=== PATIENT | male | born 1985 | race Caucasian/White ===

== ENCOUNTER 2023-02-22 14:28 | Emergency (ER) | payer OTHER, SELFPAY ==
[2023-02-22 14:33] VITALS: BP 146/80; PULSE 99; RESP 18; TEMP 36.8; O2SAT 96; BMI 36.4
--- NOTE | 2023-02-22 14:44 | XR_ITS ---
The [address] [address] Patient Name: SOL MCALLISTER MRN: [id number] date: 1985 Sex: M Assigned Patient Location: ED.MAIN Current Patient Location: ED.MAIN Accession/Order Number: [id number] Exam Date: 02/22/2023 14:54 Report Date: 02/22/2023 15:38 At the request of: SHONA HA Procedure: XR hand LT min 3V EXAM: XR hand LT min 3V HISTORY: metallic foreign body, ?annita? COMPARISON: None. TECHNIQUE: 3 views FINDINGS: IMPRESSION: Metallic foreign body within the second distal phalanx. No fracture, dislocation or subluxation. Joint spaces are unremarkable. Electronically authenticated by: MARYAM TOBAR Date: 02/22/2023 15:38
--- NOTE | 2023-02-22 14:46 | ED.UPPEXIN1 ---
HPI - Extremity Injury (Upper) General Chief Complaint: Extremity Injury, Upper Stated Complaint: UPPER EXTREMITY INJURY TO LEFT FINGER Time Seen by Provider: 02/22/23 14:42 Source: patient Mode of arrival: walk-in History of Present Illness HPI narrative: 37-year-old male presents for a piece of metal in his left index finger. He was working on a car and it went in. He was trying to get it out but was able to do so. He had a tetanus shot a month or two ago. No other injury was sustained. He thinks there could be a annita on the end of the piece of metal. This happened just before coming into the emergency department. Related Data Previous Rx's Medication Instructions Recorded cephalexin 500 mg capsule 500 mg PO QID 10 days #40 caps 02/22/23 Allergies Allergy/AdvReac Type Severity Reaction Status Date / Time penicillin G AdvReac Intermediate Verified 02/22/23 14:33 Review of Systems ROS Narrative A ten point review of systems is negative except as noted above. PFSH PFSH Social History Smoking status: Current every day smoker Exam Narrative Exam Narrative: Nurses note and vital signs reviewed and patient is not hypoxic. General: The patient appears well and in no apparent distress. Patient is resting comfortably on cart. Skin: Warm, dry, no pallor noted. There is no rash noted. Head: Normocephalic, atraumatic Eye: Normal conjunctiva, no drainage Ears, Nose, Mouth, and Throat: oral mucosa is moist. Nares patent. Cardiovascular: Regular Rate and Rhythm Respiratory: Patient is in no distress, no accessory muscle use, lungs are clear to auscultation, no wheezing, rales or rhonchi Back: non-tender GI: nontender Musculoskeletal: there is a linear, wire-like, piece of metal protruding from his left index finger. Neurological: A&O, normal speech Psychiatric: Cooperative Constitutional Vital Signs, click to edit/add: Last Vital Signs Temp 98.2 F 02/22/23 14:33 Pulse 99 H 02/22/23 14:33 Resp 18 02/22/23 14:33 BP 146/80 H 02/22/23 14:33 Pulse Ox 96 02/22/23 14:33 Course Vital Signs Vital signs: Vital Signs Temperature 98.2 F 02/22/23 14:33 Pulse Rate 99 H 02/22/23 14:33 Respiratory Rate 18 11/18/23 14:33 Blood Pressure 146/80 H 02/22/23 14:33 Pulse Oximetry 96 02/22/23 14:33 Temperature 98.2 F 02/22/23 14:33 Pulse Rate 99 H 02/22/23 14:33 Respiratory Rate 18 02/22/23 14:33 Blood Pressure 146/80 H 02/22/23 14:33 Pulse Oximetry 96 02/22/23 14:33 MDM - Extremity Injury (Upper) MDM Narrative Medical decision making narrative: Foreign bodies identified. The following procedure was performed by me. Finger block was applied with one percent lidocaine without epinephrine resulting in complete skin anesthesia. The area was prepped with Betadine ?3. The foreign body was then removed without difficulty with hemostats. It was removed in its entirety. No consultations. He tolerated the procedure well. Differential Diagnosis Differential diagnosis: Likely other (foreign body, fracture) Imaging Data hand x-ray: Radiologist's impression: Procedure: XR hand LT min 3V EXAM: XR hand LT min 3V HISTORY: metallic foreign body, ?annita? COMPARISON: None. TECHNIQUE: 3 views FINDINGS: IMPRESSION: Metallic foreign body within the second distal phalanx. No fracture, dislocation or subluxation. Joint spaces are unremarkable. Electronically authenticated by: MARYAM TOBAR Date: 02/22/2023 15 Discharge Plan Discharge Chief Complaint: Extremity Injury, Upper Clinical Impression: Foreign body (FB) in soft tissue Patient Disposition: Home, Self-Care Time of Disposition Decision: 15:48 Condition: Good Mode of Transportation: Private Vehicle Prescriptions / Home Meds: New cephalexin 500 mg capsule 500 mg PO QID 10 Days Qty: 40 0RF Instructions: Soft Tissue Foreign Body (ED) Stand Alone Forms: Portal Instructions Referrals: Bakari Barclay MD [Primary Care Provider] - 1 week
[2023-02-22] MEDS: LIDOCAINE HCL 1% 100 MG/10 ML MDV INJ (15:25)
== END 2023-02-22 15:55 | disposition home or self-care (01) ==
PROVIDERS: Emergency Provider Emergency Medicine; PCP Family Medicine
DX: S61.241A Puncture wound with foreign body of left index finger without damage to nail, initial encounter (principal); F17.210 Nicotine dependence, cigarettes, uncomplicated
CPT/HCPCS: 64450; 73130; 99283

== ENCOUNTER 2023-07-14 05:15 | Emergency (ER) | payer OTHER, SELFPAY ==
[2023-07-14 05:21] VITALS: BP 119/95; PULSE 83; TEMP 36.6; O2SAT 94; BMI 35.9
--- OUTSIDE RECORDS SUMMARY | 2023-07-14 05:37 | XMS_ITS | CCD ---
Author Organization [facility] Care Team Providers Care Day Care Supervisor Name Role Phone DneyLuisa~[phone] UNKNOWN Unavailable Unavailable SUSHMA DASILVA Unavailable Unavailrosemayr SALINAS ., DR MORAN Primary Care Unavailable WILLIAN ., CINDY Admitting Unavailable WILLIAN ., CINDY Attending Unavailable VLADIMIR ., MICHI Consulting Unavailable MARYAM DURAND Consulting Unavailable DENY ., DR MORAN Admitting Unavailable DENY ., DR MORAN Attending Unavailable DENY ., DR MORAN Primary Care Unavailable DENY ., DR MORAN Consulting Unavailable TONI, DR SRINIVAS [place] Consult[employer] Unavailable Allergies Allergy Classification Reported Allergen(s) Allergy Type Date of Onset Reaction(s) Facility (1 source) Penicillin Drug Allergy [facility] Repository Problems Active Problems Problem Classification Problem Date Documented Da te Episodic/Chronic Substance-related disorders (1 source) Nicotine dependence, cigarettes, uncomplicated; Translations: [NICOTINE DEPEND CIGARETTES UNCOMP] Onset: 04-16-2022 Chronic Past or Other Problems Problem Classification Problem Date Documented Da te Episodic/Chronic Nausea and vomiting (4 sources) Nausea with vomiting, unspecified; Translations: [NAUSEA WITH VOMITING UNSPECIFIED] Onset: 04-13-2022 Episodic Residual codes; unclassified (4 sources) Localized edema; Translations: [LOCALIZED EDEMA] Onset: 04-15-2022 Episodic Results Test Name Value Interpretation Reference Range Facil ity US SANDRA DOP LEG LTon 04-15-19 23 US SANDRA DOP LEG LT EXAMINATION: US SANDRA DOP LEG LT HISTORY: Localized edema ; left leg pain, redness COMPARISON: No relevant comparison available. FINDINGS: REGION: Left leg THROMBI: None. COMPRESSIBILITY: Normal compressibility. FLOW: Normal waveform and antegrade flow between 5 and 20 cm/s. OTHER: None. IMPRESSION: 1. No deep vein thrombus within the left lower extremity. Electronically authenticated by: SRINIVAS MUÑOZ Date: 2022-04-15 14:52 Normal [facility] CBC AUTO DIFFon 04-13-2022 BASO # 0.0 103/ul Normal 0.0-0.1 [facility] Comment on above: Performed By: #### C BC #### [facility] [address] [address] [address] Bacilio Kim Basophils/100 WBC (Bld) 0.1 % Critically low 0.2-2.0 [facility] Comment on above: Performed By: #### C BC #### [facility] [address] [place] [address] Dr. Bacilio Kim EO # 0.0 103/ul Normal 0.0-0.7 [facility] Comment on above: Performed By: #### C BC #### [facility] [address] [place] [address] Dr. Bacilio Kim Eosinophils/100 WBC (Bld) 0.0 % Critically low 0.9-7.0 [facility] Comment on above: Performed By: #### C BC #### [facility] [address] [place] [address] Dr. Bacilio Kim Erythrocyte distribution width (RBC) [Ratio] 12.5 % Normal 11.0-15.0 [facility] Comment on above: Performed By: #### C BC #### [facility] [address] [place] [address] Dr. Bacilio Kim Hematocrit (Bld) [Volume fraction] 43.3 % Normal 42.0-54.0 [facility] Comment on above: Performed By: #### C BC #### [facility] [address] [place] [address] Dr. Bacilio Kim Hemoglobin (Bld) [Mass/Vol] 16.1 g/dL Normal 14.0-18.0 [facility] Comment on above: Performed By: #### C BC #### [facility] [address] [place] [address] Dr. Bacilio Kim IG # 0.04 10e3/ul Critically high 0.00-0.03 [facility] Comment on above: Performed By: #### C BC #### [facility] [address] [place] [address] Dr. Bacilio Kim IG % 0.3 % Normal 0.0-0.5 [facility] Comment on above: Performed By: #### C BC #### [facility] [address] [place] [address] Dr. Bacilio Kim LYMPH # 0.6 103/ul Critically low 1.2-3.8 [facility] Comment on above: Performed By: #### C BC #### [facility] [address] [place] [address] Dr. Bacilio Kim Lymphocytes/100 WBC (Bld) 3.8 % Critically low 20.5-60.0 [facility] Comment on above: Performed By: #### C BC #### [facility] [address] [place] [address] Dr. Bacilio Kim MANUAL DIFF REQ NO Normal [facility] Comment on above: Performed By: #### C BC #### [facility] [address] [place] [address] Dr. Bacilio Kim MCH (RBC) [Entitic mass] 28.6 pg Normal 25.9-34.0 [facility] Comment on above: Performed By: #### C BC #### [facility] [address] [place] [address] Dr. Bacilio Kim MCHC (RBC) [Mass/Vol] 37.2 g/dL Critically high 29.9-35.2 [facility] Comment on above: Performed By: #### C BC #### [facility] [address] [place] [address] Dr. Bacilio Kim MCV (RBC) [Entitic vol] 77.0 fL Critically low 80.0-94.0 [facility] Comment on above: Performed By: #### C BC #### [facility] [address] [place] [address] Dr. Bacilio Kim MONO # 0.8 103/ul Normal 0.3-0.8 [facility] Comment on above: Performed By: #### C BC #### [facility] [address] [place] [address] Dr. Bacilio Kim Monocytes/100 WBC (Bld) 5.5 % Normal 1.7-12.0 [facility] Comment on above: Performed By: #### C BC #### [facility] [address] [place] [address] Dr. Bacilio Kim NEUT # 13.4 103/ul Critically high 1.4-6.[address] [facility] Comment on above: Performed By: #### C BC #### [facility] [address] [place] [address] Dr. Bacilio Kim Neutrophils/100 WBC (Bld) 90.3 % Critically high 43.0-75.0 [facility] Comment on above: Performed By: #### C BC #### [facility] [address] [place] [address] Dr. Bacilio Kim Platelet mean volume (Bld) [Entitic vol] 8.9 fL Critically low 9.5-13.5 [facility] Comment on above: Performed By: #### C BC #### [facility] [address] [place] [address] Dr. Bacilio Kim PLT 170 103/ul Normal 150-450 [facility] Comment on above: Performed By: #### C BC #### [facility] [address] [place] [address] Dr. Bacilio Kim RBC 5.62 106/ul Normal 4.70-6.10 [facility] Comment on above: Performed By: #### C BC #### [facility] [address] [place] [address] Dr. Bacilio Kim WBC 14.8 103/ul Critically high 4.0-11.[address] [facility] Comment on above: Performed By: #### C BC #### [facility] [address] [place] [address] Dr. Bacilio Kim ER URINE PROFILEon 3 Bilirubin Ql (U) SMALL Abnormal NEGATIVE [facility] Comment on above: Performed By: #### E RICH UMJESSICARO #### [facility] [address] [place] [address] Dr. Bacilio Kim Clarity (U) CLEAR Normal CLEAR [facility] Comment on above: Performed By: #### Kelly VILLANUEVA UMICRO #### [facility] [address] [place] [address] Dr. Bacilio Kim Color (U) YELLOW Normal YELLOW [facility] Comment on above: Performed By: #### Kelly VILLANUEVA UMICRO #### [facility] [address] [place] [address] Dr. Bacilio CORDOVAAHJose A micrscopic examination will be performed if indicated. Normal [facility] Comment on above: Performed By: #### Kelly VILLANUEVA UMICRO #### [facility] [address] [place] [address] Dr. Bacilio Kim Glucose Ql (U) Negative Normal NEGATIVE [facility] Comment on above: Performed By: #### Kelly VILLANUEVA UMICRO #### [facility] [address] [place] [address] Dr. Bacilio Kim Hemoglobin Ql (U) MODERATE Abnormal NEGATIVE [facility] Comment on above: Performed By: #### Kelly VILLANUEVA UMICRO #### [facility] [address] [place] [address] Dr. Bacilio Kim Ketones Ql (U) 15 mg/dl Abnormal NEGATIVE [facility] Comment on above: Performed By: #### Kelly VILLANUEVA UMICRO #### [facility] [address] [place] [address] Dr. Bacilio Kim LEUKOCYTES Negative Normal NEGATIVE [facility] Comment on above: Performed By: #### Kelly VILLANUEVA UMICRO #### [facility] [address] [place] [address] Dr. Bacilio Kim Nitrite Ql (U) Negative Normal NEGATIVE [facility] Comment on above: Performed By: #### Kelly VILLANUEVA UMICRO #### [facility] [address] [place] [address] Dr. Bacilio Kim pH (U) 5.5 [pH] Normal 5-9 [facility] Comment on above: Performed By: #### Kelly VILLANUEVA UMICRO #### [facility] [address] [place] [address] Dr. Bacilio Kim SPEC GRAVITY 1.025 Normal 1.005-<=1.025 [facility] Comment on above: Performed By: #### KEI GALLOWAY #### [facility] [address] [place] [address] Dr. Bacilio Kim UA PROTEIN TRACE Normal NEGATIVE/ TRACE [facility] Comment on above: Performed By: #### FRANCISCO GALLOWAYRO #### [facility] [address] [place] [address] Dr. Bacliio Kim UR MICRO IND INDICATED Normal [facility] Comment on above: Performed By: #### FRANCISCO GALLOWAYRO #### [facility] [address] [place] [address] Dr. Bacilio Kim Urobilinogen Qn (U) 1.0 {Mai'U}/dL Normal 0.2 - 1. 0 [facility] Comment on above: Performed By: #### KEI GALLOWAY #### [facility] [address] [place] [address] Dr. Bacilio Kim INFLUENZA A AND B AGon 04-13 INFLUANEGH SEE BELOW Normal [facility] Comment on above: Result Comment: Nega tive for Flu A protein angiten. Infection due to Flu A cannot be ruled out. Flu A angiten in the sample may be below the detection limit of the test. Performed By: #### I NFLUAB #### [facility] [address] [place] [address] Dr. Bacilio Kim INFLUBNEGH SEE BELOW Normal [facility] Comment on above: Result Comment: Nega tive for Flu B protein antigen. Infection due to Flu B cannot be ruled out. Flu B antigen in the sample may be below the detection limit of the test. Performed By: #### I NFLUAB #### [facility] [address] [place] [address] Dr. Bacilio Kim INFLUENZA A AG Negative Normal NEGATIVE SEE COMMENT [facility] Comment on above: Performed By: #### I NFLUAB #### [facility] [address] [place] [address] Dr. Bacilio Kim INFLUENZA B AG Negative Normal NEGATIVE SEE COMMENT [facility] Comment on above: Performed By: #### I NFLUAB #### [facility] [address] [place] [address] Dr. Bacilio Kim PROF 14(COMP METB)on 023 Albumin [Mass/Vol] 4.0 g/dL Normal 3.4-5.0 [facility] Comment on above: Performed By: #### C MP #### [facility] [address] [place] [address] Dr. Bacilio Kim Albumin/Globulin [Mass ratio] 1.2 {ratio} Normal [facility] Comment on above: Performed By: #### C MP #### [facility] [address] [place] [address] Dr. Bacilio Kim ALP [Catalytic activity/Vol] 89 U/L Normal 46-116 [facility] Comment on above: Performed By: #### C MP #### [facility] [address] [place] [address] Dr. Bacilio Kim ALT [Catalytic activity/Vol] 29 U/L Normal 16-63 [facility] Comment on above: Performed By: #### C MP #### [facility] [address] [place] [address] Dr. Bacilio Kim Anion gap [Moles/Vol] 14.1 mmol/L Normal [facility] Comment on above: Performed By: #### C MP #### [facility] [address] [place] [address] Dr. Bacilio Kim AST [Catalytic activity/Vol] 24 U/L Normal 15-37 [facility] Comment on above: Performed By: #### C MP #### [facility] [address] [place] [address] Dr. Bacilio Kim Bilirubin [Mass/Vol] 1.0 mg/dL Normal 0.2-1.0 [facility] Comment on above: Performed By: #### C MP #### [facility] [address] [place] [address] Dr. Bacilio Kim Calcium [Mass/Vol] 9.0 mg/dL Normal 8.5-10.1 [facility] Comment on above: Performed By: #### C MP #### [facility] [address] [address] [address] Bacilio Kim Chloride [Moles/Vol] 99 mmol/L Normal 98-107 [facility] Comment on above: Performed By: #### C MP #### [facility] [address] [address] [address] Bacilio Kim CO2 [Moles/Vol] 23.6 mmol/L Normal 21.0-32.[address] [facility] Comment on above: Performed By: #### C MP #### [facility] [address] [place] [address] Dr. Bacilio Kim Creatinine [Mass/Vol] 1.00 mg/dL Normal 0.70-1.30 [facility] Comment on above: Performed By: #### C MP #### [facility] [address] [place] [address] Dr. Bacilio Kim EGFR-AF NIGERIEN >60 Normal >=[address] [facility] Comment on above: Performed By: #### C MP #### [facility] [address] [place] [address] Dr. Bacilio Kim EGFR-NON AF NIGERIEN >60 Normal >=60 [facility] Comment on above: Performed By: #### C MP #### [facility] [address] [place] [address] Dr. Bacilio Kim Globulin (S) [Mass/Vol] 3.4 g/dL Normal [facility] Comment on above: Performed By: #### C MP #### [facility] [address] [place] [address] Dr. Bacilio Kim Glucose [Mass/Vol] 100 mg/dL Normal 74-106 [facility] Comment on above: Performed By: #### C MP #### [facility] [address] [place] [address] Dr. Bacilio Kim Potassium [Moles/Vol] 3.7 mmol/L Normal 3.5-5.1 [facility] Comment on above: Performed By: #### C MP #### [facility] [address] [address] [address] Bacilio Kim Protein [Mass/Vol] 7.4 g/dL Normal 6.4-8.2 [facility] Comment on above: Performed By: #### C MP #### [facility] [address] [address] [address] Bacilio Kim Sodium [Moles/Vol] 133 mmol/L Critically low 136-145 [facility] Comment on above: Performed By: #### C MP #### [facility] [address] [place] [address] Dr. Bacilio Kim Urea nitrogen [Mass/Vol] 17.0 mg/dL Normal 7.0-18.0 [facility] Comment on above: Performed By: #### C MP #### [facility] [address] [place] [address] Dr. Bacilio Kim Urea nitrogen/Creatinine [Mass ratio] 17.0 mg/mg Normal [facility] Comment on above: Performed By: #### C MP #### [facility] [address] [place] [address] Dr. Bacilio Kim URINE MICROSCOPIC ONLYon BACTERIA TRACE Abnormal NONE SEEN [facility] Comment on above: Performed By: #### Kelly VILLANUEVA UMICRO #### [facility] [address] [place] [address] Dr. Bacilio Kim Bacteria identified Cx Nom (U) NOT INDICATED Normal [facility] Comment on above: Performed By: #### Kelly VILLANUEVA UMICRO #### [facility] [address] [place] [address] Dr. Bacilio Kim CAST NONE SEEN Normal NONE SEEN [facility] Comment on above: Performed By: #### Kelly VILLANUEVA UMICRO #### [facility] [address] [place] [address] Dr. Bacilio Kim Crystals LM Nom (Urine sed) NONE SEEN Normal NONE SEEN [facility] Comment on above: Performed By: #### Kelly VILLANUEVA UMICRO #### [facility] [address] [place] [address] Dr. Bacilio Kim Epithelial cells LM Ql (Urine sed) RARE Normal NONE SEEN /RARE [facility] Comment on above: Performed By: #### FRANCISCO GALLOWAYRO #### [facility] [address] [address] [address] Bacilio Kim MUCOUS TRACE Abnormal NONE SEEN [facility] Comment on above: Performed By: #### FRANCISCO GALLOWAYRO #### [facility] [address] [place] [address] Dr. Bacilio Kim RBC 5-10 Abnormal 0-2 [facility] Comment on above: Performed By: #### E FRANCISCO VILLANUEVARO #### [facility] [address] [place] [address] Dr. Bacilio Kim WBC 0-2 Abnormal NONE SEEN [facility] Comment on above: Performed By: #### FRANCISCO GALLOWAYRO #### [facility] [address] [place] [address] Dr. Bacilio Kim XR CHEST 2 Von 04-13-2022 XR CHEST 2 V EXAM: Chest x-ray HISTORY: . NAUSEA WITH VOMITING, UNSPECIFIED . COMPARISON: None. TECHNIQUE: Frontal and lateral chest FINDINGS: Heart and vascularity are unremarkable. Lungs are expanded and free of focal infiltrates. No acute bony abnormality is appreciated. IMPRESSION: No acute heart or lung disease identified. Electronically authenticated by: MARYAM DURAND Date: 2022-04-13 16:50 Normal [facility] BMPon 09-09-2017 Anion gap 16 mmol/L Normal 6-16 [facility] Comment on above: Performed By: #### 2 [id number], [id number] ####[facility] [address] [place] [address] BUN/Creatinine Ratio 19 No Units Normal 10-20 [facility] Comment on above: Performed By: #### 2 [id number], [id number] ####[facility] [address] [place] [address] Calcium 8.9 mg/dL Normal 8.9-11.1 [facility] Comment on above: Performed By: #### 2 [id number], [id number] ####[facility] [address] [place] [address] Chloride 105 mmol/L Normal 101-111 [facility] Comment on above: Performed By: #### 2 [id number], [id number] ####[facility] [address] [place] [address] CO2 24 mmol/L Normal 21-31 [facility] Comment on above: Performed By: #### 2 [id number], [id number] ####[facility] [address] [place] [address] Creatinine 0.8 mg/dL Normal 0.5-1.3 [facility] Comment on above: Performed By: #### 2 [id number], [id number] ####[facility] [address] [place] [address] Glucose mass conc 101 mg/dL Normal 55-199 [facility] Comment on above: Result Comment: If t his glucose result represents a fasting glucose, interpretation should refer to the following reference range: 55-99 mg/dL Performed By: #### 2 [id number], [id number] ####[facility] [address] [place] [address] Potassium molar conc 3.1 mmol/L Low 3.5-5.3 [facility] Comment on above: Performed By: #### 2 [id number], [id number] ####[facility] [address] [place] [address] Sodium 138 mmol/L Normal 135-145 [facility] Comment on above: Performed By: #### 2 [id number], [id number] ####[facility] [address] [place] [address] Urea nitrogen 15 mg/dL Normal 5-21 [facility] Comment on above: Performed By: #### 2 [id number], [id number] ####[facility] [address] [place] [address] eGFRon 09-09-2017 eGFR (black) mL/min/{1.73_m2} Normal >=59 [facility] Comment on above: Order Comment: Order added by Discern Expert. Result Comment: eGFR is race adjusted. AA=. Performed By: #### 2 [id number], [id number] ####[facility] [address] [place] [address] eGFR (non-black) mL/min/{1.73_m2} Normal >=59 [facility] Comment on above: Order Comment: Order added by Discern Expert. Result Comment: Rn Examiner caroline kidney disease could be indicated at eGFR's of less than 60 mL/min/1.73m2. Kidney failure is indicated at less than 15 mL/min/1.73m2. Performed By: #### 2 [id number], [id number] ####[facility] [address] [place] [address] Encounters Encounter Date Encounter Type Care Provider Facility Start: 04-15-2022 End: 04-16-[address] LUISA SALINAS . Facility: Start: 04-13-2022 End: 04-13-[address] LUISA SALINAS . Facility: Start: 09-09-2017 End: 09-09-2017 Ambulatory Luisa~[id number] UNKNOWN Den[place] [facility] P[place] Date Payer Category Payer Unknown [id number] 1985 Unknown [id number] 1961 Unknown [id number] Summary Purpose Family History No Family History Records FoundNo Family History Records Found Advance Directives No Advanced Directives Records FoundNo Advanced Directives Records Found Additional Source Comments (unrecognized sect ion and content) No Status Records FoundNo Status Records Found INFORMATION SOURCE (unrecogn ized section and content) DATE CREATED AUTHOR 09/23/2017 [facility] DATE CREATED AUTHOR AUTHOR'S CHARISSEIZ ATMALOU 07/30/2022 [facility] FOR RECORDS PERTAINING TO PATIENTS WHO ARE OR HAVE BEEN ENROLLED IN A CHEMICAL DEPENDENCY/SUBSTANCEABUSE PROGRAM, SOME INFORMATION MAY BE OMITTED. This clinical summary was aggregated from multiple sources. Caution should be exercised in using it in the provision of clinical care. This summary normalizes information from multiple sources, and as a consequence, information in this document may materially change the coding, format and clinical context of patient data. In addition, data may be omitted in some cases. CLINICAL DECISIONS SHOULD BE BASED ON THE PRIMARY CLINICAL RECORDS. [employer] [facility]. provides no warranty or guarantee of the accuracy or completeness of information in this document.
[2023-07-14] MEDS: 0.9 % SODIUM CHLORIDE 1,000 ML 1000 ML IV (05:54)
[2023-07-14] MEDS: ONDANSETRON PF 4 MG/2 ML VIAL IV (05:54)
[2023-07-14 05:55] LABS: Basophils Percent Auto 0.3 % (0.2-2.0); Eosinophils Absolute Auto 0.1 10^3/uL (0.0-0.7); Eosinophils Percent Auto 0.5 % (0.9-7.0); Hematocrit 44.9 % (42.0-54.0); Hemoglobin 15.2 g/dL (14.0-18.0); Immature Granulocytes Abs Auto 0.03 10^3/uL (0.00-0.03); Immature Granulocytes Pct Auto 0.3 % (0.0-0.5); Lymphocytes Absolute Auto 0.5 10^3/uL (1.2-3.8); Lymphocytes Percent Auto 5.6 % (20.5-60.0); Mean Corpuscular HGB Conc 33.9 g/dL (29.9-35.2); Mean Corpuscular Hemoglobin 28.9 pg (25.9-34.0); Mean Corpuscular Volume 85.4 fL (80.0-94.0); Mean Platelet Volume 9.4 fL (9.5-13.5); Monocytes Absolute Auto 0.7 10^3/uL (0.3-0.8); Monocytes Percent Auto 7.9 % (1.7-12.0); Neutrophils Absolute Auto 7.8 10^3/uL (1.4-6.5); Neutrophils Percent Auto 85.4 % (43.0-75.0); Platelet Count 179 10^3/uL (150-450); Red Blood Count 5.26 10^6/uL (4.70-6.10); Red Cell Distribution Width 12.6 % (11.0-15.0); White Blood Count 9.1 10^3/uL (4.0-11.0)
[2023-07-14 06:04] LABS: Anion Gap 14.4; BUN Creatinine Ratio 19.8; Calcium 8.4 mg/dL (8.5-10.1); Carbon Dioxide 26.5 mmol/L (21.0-32.0); Chloride 106 mmol/L (98-107); Estimated GFR (African America >60 (>=60); Estimated GFR (Non-African Ame >60 (>=60); Glucose 108 mg/dL (74-106); Potassium 3.9 mmol/L (3.5-5.1); Sodium 143 mmol/L (136-145)
[2023-07-14 06:08] LABS: Influenza Virus A Antigen Negative; Influenza Virus B Antigen Negative; Internal Control Within Normal Limits; SARS-CoV-2 Ag NEGATIVE (NEGATIVE)
--- NOTE | 2023-07-14 06:26 | XR_ITS ---
The [address] [address] Patient Name: SOL MCALLISTER MRN: [id number] date: 1985 Sex: M Assigned Patient Location: ER Current Patient Location: ED.MAIN Accession/Order Number: [id number] Exam Date: 07/14/2023 06:35 Report Date: 07/14/2023 07:04 At the request of: LEOPOLDO AVILEZ Procedure: XR abdomen min 2V EXAMINATION: XR abdomen min 2V HISTORY: nausea and vomiting COMPARISON: No relevant comparison available. FINDINGS: BOWEL GAS PATTERN: No abnormal dilation or deviation. CALCIFICATIONS: None significant. OTHER: Negative. No abnormal gaseous collections. XR/XR abdomen min 2V IMPRESSION: 1. No appreciable urinary tract calculi. 2. No bowel obstruction. Moderate stool burden. Electronically authenticated by: SRINIVAS MUÑOZ Date: 07/14/2023 07:04
--- NOTE | 2023-07-14 06:27 | ED.NAVMDI1 ---
HPI - Nausea/Vomiting/Diarrhea General Chief complaint: Nausea/Vomiting/Diarrhea Stated complaint: eye burning, chills Time Seen by Provider: 07/14/23 06:22 Source: patient Mode of arrival: walk-in Limitations: no limitations History of Present Illness HPI Narrative: presents complaining of recurrent nausea and vomiting that started this AM. No diarrhea. Exposed to family members who had been ill. Was on his way to work when he vomited again and then diverted and came here. No abdominal pain or fever. Not short of breath MD elicited complaint: Reports nausea and vomiting Related Data Previous Rx's ?Medication ?Instructions ?Recorded cephalexin 500 mg capsule 500 mg PO QID 10 days #40 caps 02/22/23 Allergies Allergy/AdvReac Type Severity Reaction Status Date / Time penicillin G AdvReac Intermediate Verified 07/14/23 05:25 Review of Systems ROS Status of ROS 10 or more systems reviewed and unremarkable except as noted in history and below PFSH PFS Social History Smoking status: Current every day smoker Exam Constitutional Vital Signs, click to edit/add: Last Vital Signs Temp 97.8 F 07/14/23 05:21 Pulse 83 07/14/23 05:21 Resp 16 07/14/23 05:44 BP 119/95 H 07/14/23 05:21 Pulse Ox 94 L 07/14/23 05:21 O2 Del Method Room Air 07/14/23 05:21 Common normals: no apparent distress, average body habitus, oriented x3, no limitations, healthy appearing, alert and well nourished [facility] Common normals: normocephalic and head/scalp atraumatic Eye Common normals: PERRL, EOMs intact bilaterally and conjunctivae normal Respiratory Common normals: normal respiratory effort, no retractions, no use of accessory muscles and clear to auscultation bilaterally Cardio Common normals: regular rate, regular rhythm, S1 normal heart sound and S2 normal heart sound GI Common normals: Normal to inspection, nondistended, normoactive bowel sounds present, soft to palpation and non-tender Extremity Common normals: normal to inspection and full ROM Neuro Common normals: oriented x3, CN's II-XII intact bilaterally, moves all extremities and no focal motor deficits Psych Appearance: grossly normal Course Vital Signs Vital signs: Vital Signs Temperature 97.8 F 07/14/23 05:21 Pulse Rate 83 07/14/23 05:21 Respiratory Rate 16 07/14/23 05:21 Blood Pressure 119/95 H 07/14/23 05:21 Pulse Oximetry 94 L 07/14/23 05:21 Oxygen Delivery Method Room Air 07/14/23 05:21 Temperature 97.8 F 07/14/23 05:21 Pulse Rate 83 07/14/23 05:21 Respiratory Rate 16 07/14/23 05:44 Blood Pressure 119/95 H 07/14/23 05:21 Pulse Oximetry 94 L 07/14/23 05:21 Oxygen Delivery Method Room Air 07/14/23 05:21 MDM - Nausea/Vomiting/Diarrhea MDM Narrative Medical decision making narrative: presents complaining of recurrent vomiting. Not able to keep anything down. Exam neg. Patient hydrated and labs, xrays and antiemetics ordered. care transferred to Dr Valdovinos at change of shift Lab Data Labs: Lab Results 07/14/23 07/14/23 Range/Units 05:35 05:47 WBC 9.1 (4.0-11.0) 10^3/uL RBC 5.26 (4.70-6.10) 10^6/uL Hgb 15.2 (14.0-18.0) g/dL Hct 44.9 (42.0-54.0) % MCV 85.4 (80.0-94.0) fL MCH 28.9 (25.9-34.0) pg MCHC 33.9 (29.9-35.2) g/dL RDW 12.6 (11.0-15.0) % Plt Count 179 (150-450) 10^3/uL MPV 9.4 L (9.5-13.5) fL Neut % (Auto) 85.4 H (43.0-75.0) % Lymph % (Auto) 5.6 L (20.5-60.0) % Ritchie % (Auto) 7.9 (1.7-12.0) % Eos % (Auto) 0.5 L (0.9-7.0) % Baso % (Auto) 0.3 (0.2-2.0) % Neut # (Auto) 7.8 H (1.4-6.5) 10^3/uL Lymph # (Auto) 0.5 L (1.2-3.8) 10^3/uL Ritchie # (Auto) 0.7 (0.3-0.8) 10^3/uL Eos # (Auto) 0.1 (0.0-0.7) 10^3/uL Baso # (Auto) 0.0 (0.0-0.1) 10^3/uL Abs Immat Gran (auto) 0.03 (0.00-0.03) 10^3/uL Imm/Tot Granulo (auto) 0.3 (0.0-0.5) % Sodium 143 (136-145) mmol/L Potassium 3.9 (3.5-5.1) mmol/L Chloride 106 (98-107) mmol/L Carbon Dioxide 26.5 (21.0-32.0) mmol/L Anion Gap 14.4 BUN 19.0 H (7.0-18.0) mg/dL Creatinine 0.96 (0.70-1.30) mg/dL Est GFR ( Amer) >60 (>=60) Est GFR (Non-Af Amer) >60 (>=60) BUN/Creatinine Ratio 19.8 Glucose 108 H (74-106) mg/dL Calcium 8.4 L (8.5-10.1) mg/dL Influenza Type A Ag Negative Influenza Type B Ag Negative SARS-CoV-2 Ag (CV2AG) Negative (NEGATIVE) Discharge Plan Discharge Chief Complaint: Nausea/Vomiting/Diarrhea Clinical Impression: Nausea and vomiting Patient Disposition: Still a Patient Prescriptions / Home Meds: No Action cephalexin 500 mg capsule 500 mg PO QID 10 Days Qty: 40 0RF Print Language: French Referrals: Bakari Barclay MD [Primary Care Provider] - 1 week
[2023-07-14] MEDS: 0.9 % SODIUM CHLORIDE 1,000 ML 999 ML IV (07:02)
== END 2023-07-14 07:42 | disposition home or self-care (01) ==
PROVIDERS: Emergency Provider Internal Medicine; PCP Family Medicine
DX: R11.2 Nausea with vomiting, unspecified (principal); F17.210 Nicotine dependence, cigarettes, uncomplicated; Z20.822 Contact with and (suspected) exposure to COVID-19
CPT/HCPCS: 36415; 74019; 80048; 85025; 87804; 87811; 96361; 96374; 99284

== ENCOUNTER 2025-01-15 11:16 | Emergency (ER) | payer OTHER, SELFPAY ==
[2025-01-15 11:20] VITALS: BP 143/94; PULSE 85; TEMP 36.4; O2SAT 98; BMI 38.0
--- OUTSIDE RECORDS SUMMARY | 2025-01-15 11:28 | XMS_ITS | Clinical Summary ---
Author Organization [facility] Address [id number] [address] [place] [address] Care Team Providers Care Predatory Game Hunter Name Role Phone Bakari Barclay MD Primary Care Provider [phone] Allergies Active Allergy Reactions Criticality Noted Date Comments Penicillins 03/17/2019 Medications No known medications Immunizations Immunization Administration Dates Next Due Tdap 01/06/2023 Social History Tobacco Use Types Packs/Day Years Used Date Smoking Tobacco: Every Day Cigarettes Smokeless Tobacco: Never Alcohol Use Standard Drinks/Week Comments Not Currently 0 (1 standard drink = 0.6 oz pur e alcohol) Childcare Answer Date Recorded Childcare Unknown 09/16/2018 Employment Answer Date Recorded Employment Unknown 09/16/2018 Purpose - Life Answer Date Recorded Purpose and direction in life Unknown Sex and Gender Information Value Date Recorded Sex Assigned at Not on file Legal Sex Male 12:03 PM EDT Gender Identity Not on file Sexual Orientation Not on file Last Filed Vital Signs Vital Sign Reading Time Taken Comments Blood Pressure 123/77 01/06/2023 9:29 AM EDT Pulse 89 01/06/2023 8:41 AM EDT Temperature 36.9 C (98.4 F) 01/06/2023 8:41 AM EDT Respiratory Rate 18 01/06/2023 8:41 AM EDT Oxygen Saturation 95% 01/06/2023 8:41 AM EDT Inhaled Oxygen Concentration - - Weight 109.8 kg (242 lb) 01/06/2023 8:41 AM EDT Height 177.8 cm (5' 10 ) 01/06/2023 8:41 AM EDT Body Mass Index 34.72 01/06/2023 8:41 AM EDT Plan of Treatment Health Maintenance Due Date Last Done Comments Depression Screening 1995 Adult BMI Screening 01/07/2024 01/06/2023 Tobacco Screening 01/07/2024 01/06/2023 Influenza Vaccine 12/06/2024 DTaP,Tdap and Td Vaccines (3 - Td or Tdap) 01/06/2033 01/06/2023, 02/15/2012 Medical Devices Not on file Insurance [employer] Care Teams Predatory Game Hunter Relationship Specialty Start Date End Date Bakari Barclay MD PCP - General Family Medicine 03/17/19
--- OUTSIDE RECORDS SUMMARY | 2025-01-15 11:28 | XMS_ITS | Patient Health Record ---
Author Organization [facility] in [place] Address [address] [place] [address] Care Team Providers Care Construction Management Assistant Name Role Phone Carlton Barclay Primary Care Provider Allergies Allergen (clinical drug ingredient) Drug/Non Drug Allergy documented on EMR Reaction Allergy Type Onset Date Status Penicillin childhood allergy Drug Allergy Active Reason For Referral No Information Medications Medication SIG (Take, Route, Fr equency, Duration) Notes Start Date End Date Status tiZANidine HCl 4 MG 2 tabs Orally qhs; D uration: 30 days 02/20/2024 Active Diclofenac Sodium 75 MG 1 tablet as need ed Orally Twice a day; Duration: 30 days 02/20/2024 Active predniSONE 10 MG 5 tabs per day for 3 days, 4 tabs per day for 3 ays, 3 tabs perday for 3 days, 2 tabs per day for 3 days, 1 tab a day for 3 days, 1/2 tab a day for 4 days Orally Once a day; Duration: 19 days 02/20/2024 Active Social History Tobacco Use: Social History Observation Description Date Details (start date - stop date) Current Smoker 04/07/1998 - NA Tobacco Control (Standard) Question Answer Notes Tobacco use: Current smoker When did you start smoking? 04/07/1998 How often do you smoke cigarettes? Every day How many cigarettes a day do you smoke? 11-20 Additional Findings: Tobacco user Modera te cigarette smoker (10-19 cigs/day) AUDIT-C (Standard) Question Answer Notes Did you have a drink containing alcohol in the p ast year? No Points 0 Interpretation Negative Problems Problem Type SNOMED Code ICD Code Onset Dates Problem Status W/U Status Risk Notes Problem Cervical radiculopathy (06278512) Cervical radiculopathy (M54.12) Active confirmed Vital Signs Blood pressure diastolic 78 mm Hg 02/20/2024 Height 70 in 02/20/2024 Blood pressure systolic 120 mm Hg 02/20/2024 Weight 266.0 lbs 02/20/2024 BMI 38.16 kg/m2 02/20/2024 Encounters Encounter Location Date Provider Diagnosis [facility] [address] [place] [address] 02/20/2024 Carlton Barclay Cervical radiculopat hy M54.12 Assessments Encounter Date Diagnosis (ICD Code) Assessment Notes Treatment Notes Treatment Clinical Notes Section Notes 02/20/2024 Cervical radiculopathy (ICD-10 - M54.12) Plan Of Treatment No Information Insurance Providers Payer Name Payer Address Payer Phone Subscriber Number Group Number Insured Name Patient Relationship to Insured Coverage Start Date Coverage End Date MMO [employer] [address] [place] [address] [phone] [id number] Christiano Mcallister Self - patient is the insured Medical (General) History Surgical History Surgery Date(Month/Year) Vasectomy 2016 [place] teeth Hospitalization History Reason Date(Month/Year) denies
--- OUTSIDE RECORDS SUMMARY | 2025-01-15 11:28 | XMS_ITS | CCD ---
Author Organization [facility] Care Team Providers Care Software Programmer Name Role Phone BRAD Mcgrath, DR MORAN Primary Care Unavailable WILLIAN ., CINDY Admitting Unavailable WILLIAN ., CINDY Attending Unavailable VLADIMIR ., MICHI Consulting Unavailable MARYAM DURAND Consulting Unavailable BRAD ., DR MORAN Admitting Unavailable BRAD ., DR MORAN Attending Unavailable BRAD Mcgrath, DR MORAN Primary Care Unavailable BRAD Mcgrath, DR MORAN Consulting Unavailable TONI, DR BILL [place] Consulting Unavailable Luisa Barclay Primary Care Physician [phone] Oseas Arroyo Attending Unavailable Oseas Arroyo Attending Unavailable Allergies Allergy Classification Reported Allergen(s) Allergy Type Date of Onset Reaction(s) Facility (4 sources) Penicillin; Translations: [penicillin] Drug Allergy [facility] Medications Current Medications Medication Drug Class(es) Dates Sig (Normalized) Sig (Original) methocarbamol 500 mg oral tablet (1 source) Muscle Relaxant Start: 02-15-2024 End: 02-18-2024 take 1 tablet by mouth three times daily Robaxin 500 mg Tab 500 mg = 1 tab(s), Oral, TID, X 3 day(s), # 9 tab(s), Refills(s) 0, Pharmacy: [id number], 180, cm, 02/15/24 19:43:00 EST, Height/Length Dosing, 120, kg, 02/15/24 19:43:00 EST, Weight Dosing Start Date: 02/15/24 Stop Date: 02/18/24 Status: Ordered predniSONE 50 mg oral tablet (1 source) Start: 02-15-2024 End: 02-20-2024 take 1 tablet by mouth once daily predniSONE 50 mg Tab 50 mg = 1 tab(s), Oral, Daily, X 5 day(s), # 5 tab(s), Refills(s) 0, Pharmacy: [id number], 180, cm, 02/15/24 19:43:00 EST, Height/Length Dosing, 120, kg, 02/15/24 19:43:00 EST, Weight Dosing Start Date: 02/15/24 Stop Date: 02/20/24 Status: Ordered Problems Active Problems Problem Classification Problem Date Documented Da te Episodic/Chronic Other nervous system disorders (1 source) Paresthesia; Translations: [Paresthesia of skin] Onset: 02-15-2024 Episodic Spondylosis; intervertebral disc disorders; other back problems (1 source) Cervical radiculopathy; Translations: [Radiculopathy, cervical region] Onset: 02-15-2024 Episodic Substance-related disorders (1 source) Nicotine dependence, cigarettes, [...] Results Test Name Value Interpretation Reference Range Facility CT Head or Brain w/o Contras ton 02-16-2024 CT Head or Brain w/o Contrast Exam Date/Time: 02/15/2024 20:54 EST Reason for Exam: L sided paresthesia;Other (please specify) Report IMPRESSION: NEGATIVE UNENHANCED CT SCAN OF THE BRAIN. CLINICAL HISTORY: L sided paresthesia. Left-sided numbness. COMMENT: Unenhanced images were obtained. The ventricles and basal cisterns appear within normal limits. The cortical sulci appear normal. There is no mass effect nor midline shift. No abnormal attenuation within the brain is noted. There is no evidence of intracranial hemorrhage nor extra-axial hematoma. No mass lesion is evident. No skull fracture is noted. There is soft tissue opacification of a posterior right ethmoid air cell, with visualized portions of paranasal sinuses otherwise unremarkable. All CT scans at this facility use dose modulation, iterative reconstruction, and/or weight based dosing when appropriate to reduce radiation dose to as low as reasonably achievable. Ordering Provider: Oseas Arroyo FINAL REPORT Dictated: 02/16/2024 11:09 am John Lopez M.D. Signed (Electronic Signature): 02/16/2024 11:09 am Signed by: John Lopez M.D. Transcribed by: LEON Technologist: ALICE [facility] CT Spine Cervical w/o Contra stomontana 02-16-2024 CT Spine Cervical w/o Contrast Exam Date/Time: 02/15/2024 20:54 EST Reason for Exam: Radiculopathy Report IMPRESSION: MULTILEVEL DEGENERATIVE CHANGES. CLINICAL HISTORY: Radiculopathy. Left-sided numbness. COMMENT: Unenhanced images were obtained. No significant interspace narrowing is noted. There is marginal hypertrophic spurring of cervical vertebral bodies, more prominent anteriorly from C5 through C7. There is slight hypertrophic spurring of uncinate processes at C2-C3 bilaterally, C3-C4 on the right,, C4-C5 on the left, and C5-C6 on the right. There are minimal hypertrophic arthritic changes of some of the cervical facet joints. There is slight neural foraminal encroachment at C3-C4 bilaterally, C4-C5, C5-C6 on the right. The cervical vertebral bodies are maintained in height. No fracture nor subluxation is noted. There is no prevertebral retropharyngeal soft tissue swelling. Evaluation of cervical intervertebral discs is limited on this study. There are apparent minimal/mild anterior extradural defects at cervical interspace levels. No severe focal spinal canal stenosis is noted. All CT scans at this facility use dose modulation, iterative reconstruction, and/or weight based dosing when appropriate to reduce radiation dose to as low as reasonably achievable. Ordering Provider: Oseas Arroyo FINAL REPORT Dictated: 02/16/2024 11:18 am John Lopez M.D. Signed (Electronic Signature): 02/16/2024 11:18 am Signed by: John Lopez M.D. Transcribed by: LEON Technologist: ALICE [facility] CT Spine Thoracic w/o Contra juan carlos 02-16-2024 CT Spine Thoracic w/o Contrast Exam Date/Time: 02/15/2024 20:54 EST Reason for Exam: Radiculopathy Report IMPRESSION: MULTILEVEL DEGENERATIVE CHANGES. NO EVIDENCE OF ACUTE/RECENT FRACTURE. CLINICAL HISTORY: Radiculopathy. Left-sided numbness. COMMENT: Unenhanced images were obtained. There is mild anterior wedging of the T1 vertebral body, this appears to be chronic. The other thoracic vertebral bodies are maintained in height. No acute/recent fracture nor subluxation is noted. There are Schmorl's nodes involving multiple mid and lower thoracic vertebral bodies. There is spondylosis, with marginal hypertrophic spurring involving many of the thoracic vertebral bodies. Hypertrophic arthritic changes are noted involving the right C7-T1 facet joint and the right T2-T3 facet joint. There are minimal hypertrophic arthritic changes of some of the other cervical facet joints. The posterior elements are intact. Evaluation of intervertebral discs is limited. Posterior hypertrophic changes result in mild extradural defects at T5-T6 anterolaterally on the left, T6-T7 anterolaterally on the left, T7-T8 anteriorly, and T11-T12 anterolaterally on the left. Calcifications of ligamenta flava result in mild extradural defects posterolaterally on the right and left at T10-T11. No severe focal spinal canal stenosis is evident. Of incidental note, there is a small hiatal hernia. All CT scans at this facility use dose modulation, iterative reconstruction, and/or weight based dosing when appropriate to reduce radiation dose to as low as reasonably achievable. Ordering Provider: Oseas Arroyo FINAL REPORT Dictated: 02/16/2024 11:30 am John Lopez M.D. Signed (Electronic Signature): 02/16/2024 11:30 am Signed by: John Lopez M.D. Transcribed by: LEON Technologist: ALICE Rodgers [facility] XR Chest Single Viewon 02-15 XR Chest Single View Exam Date/Time: 02/15/2024 21:05 EST Reason for Exam: Chest pain Report IMPRESSION: NO EVIDENCE OF ACTIVE CHEST DISEASE. CLINICAL HISTORY: Chest pain. COMMENT: AP portable. The heart is normal in size. The mediastinum is unremarkable. The lungs appear clear. No infiltration nor pleural effusion is evident. Ordering Provider: Oseas Arroyo FINAL REPORT Dictated: 02/16/2024 7:37 am John Lopez M.D. Signed (Electronic Signature): 02/16/2024 7:37 am Signed by: John Lopez M.D. Transcribed by: LEON Technologist: EVELIO Technical Comments Radiation Dose: Ka,r in mGy = na DAP = na Normal [facility] BMPon 02-15-2024 Anion gap [Moles/Vol] 12 mmol/L Normal 6-16 [facility] Comment on above: Performed By: #### 2 [id number] #### [facility] Laboratory [address] [place] [address] Calcium [Mass/Vol] 9.1 mg/dL Normal 8.9-11.1 [facility] Comment on above: Performed By: #### 2 [id number] #### [facility] [address] [place] [address] Chloride [Moles/Vol] 104 mmol/L Normal 101-111 [facility] Comment on above: Performed By: #### 2 [id number] #### [facility] [address] [place] [address] CO2 [Moles/Vol] 26 mmol/L Normal 21-31 [facility] Comment on above: Performed By: #### 2 [id number] #### [facility] [address] [place] [address] Creatinine [Mass/Vol] 0.9 mg/dL Normal 0.5-1.3 [facility] Comment on above: Performed By: #### 2 [id number] #### [facility] [address] [place] [address] Glucose [Mass/Vol] 131 mg/dL Normal 55-199 [facility] Comment on above: Performed By: #### 2 [id number] #### [facility] [address] [place] [address] Potassium [Moles/Vol] 3.6 mmol/L Normal 3.5-5.3 [facility] Comment on above: Performed By: #### 2 [id number] #### [facility] [address] [place] [address] Sodium [Moles/Vol] 138 mmol/L Normal 135-145 [facility] Comment on above: Performed By: #### 2 [id number] #### [facility] [address] [place] [address] Urea nitrogen [Mass/Vol] 13 mg/dL Normal 5-21 [facility] Comment on above: Performed By: #### 2 [id number] #### [facility] [address] [place] [address] Urea nitrogen/Creatinine [Mass ratio] 14 No Units Normal 10-20 [facility] Comment on above: Performed By: #### 2 [id number] #### [facility] [address] [place] [address] CBC w/ Auto Diffon 4 Basophils/100 WBC (Bld) 1.0 % Normal 0.0-2.0 [facility] Comment on above: Performed By: #### 2 [id number] #### [facility] [address] [place] [address] Basophils/Leukocytes Auto (Bld) [Pure # fraction] 0.1 E9/L Normal 0.0-0.2 [facility] Comment on above: Performed By: #### 2 [id number] #### [facility] [address] [place] [address] Eosinophils (Bld) [#/Vol] 0.1 E9/L Normal 0.0-0.5 [facility] Comment on above: Performed By: #### 2 [id number] #### [facility] [address] [place] [address] Eosinophils/100 WBC (Bld) 1.1 % Normal 0.0-8.0 [facility] Comment on above: Performed By: #### 2 [id number] #### [facility] [address] [place] [address] Erythrocyte distribution width (RBC) [Ratio] 13.6 % Normal 10.9-14.2 [facility] Comment on above: Performed By: #### 2 [id number] #### [facility] [address] [place] [address] Hematocrit (Bld) [Volume fraction] 44.6 % Normal 37.7-49.0 [facility] Comment on above: Performed By: #### 2 [id number] #### [facility] [address] [place] [address] Hemoglobin (Bld) [Mass/Vol] 15.6 g/dL Normal 13.5-17.5 [facility] Comment on above: Performed By: #### 2 [id number] #### [facility] [address] [place] [address] Lymphocytes (Bld) [#/Vol] 2.0 E9/L Normal 1.0-4.0 [facility] Comment on above: Performed By: #### 2 [id number] #### [facility] [address] [place] [address] Lymphocytes/100 WBC (Bld) 25.7 % Normal 14.0-50.0 [facility] Comment on above: Performed By: #### 2 [id number] #### [facility] [address] [place] [address] MCH (RBC) [Entitic mass] 29.0 pg Normal 27.0-34.0 [facility] Comment on above: Performed By: #### 2 [id number] #### [facility] [address] [place] [address] MCHC (RBC) [Mass/Vol] 34.9 g/dL Normal 31.4-36.0 [facility] Comment on above: Performed By: #### 2 [id number] #### [facility] [address] [place] [address] MCV (RBC) [Entitic vol] 83.1 fL Normal 80.0-100.0 [facility] Comment on above: Performed By: #### 2 [id number] #### [facility] [address] [place] [address] Monocytes (Bld) [#/Vol] 0.6 E9/L Normal 0.2-1.0 [facility] Comment on above: Performed By: #### 2 [id number] #### [facility] [address] [place] [address] Neutrophils (Bld) [#/Vol] 5.1 E9/L Normal 2.0-7.5 [facility] Comment on above: Performed By: #### 2 [id number] #### [facility] [address] [place] [address] Neutrophils/100 WBC (Bld) 64.1 % Normal 36.0-75.0 [facility] Comment on above: Performed By: #### 2 [id number] #### [facility] [address] [place] [address] Platelet 253.0 E9/L Normal 150.0-500.0 [facility] Comment on above: Performed By: #### 2 [id number] #### [facility] [address] [place] [address] Platelet mean volume (Bld) [Entitic vol] 7.4 fL Normal 6.4-10.8 [facility] Comment on above: Performed By: #### 2 [id number] #### [facility] [address] [place] [address] RBC (Bld) [#/Vol] 5.4 E12/L Normal 4.3-5.9 [facility] Comment on above: Performed By: #### 2 [id number] #### [facility] [address] [place] [address] WBC corrected for nucl RBC Auto (Bld) [#/Vol] 8.0 E9/L Normal 4.0-11.0 [facility] Comment on above: Performed By: #### 2 [id number] #### [facility] [address] [place] [address] CHEMISTRYOrdered By: SYSTEM SYSTEM on 02-15-2024 Anion gap [Moles/Vol] 12 mmol/L Normal 6 - 16 mEq/L R emisol Chem Calcium [Mass/Vol] 9.1 mg/dL Normal 8.9 - 11. 1 mg/dL [facility] Chloride [Moles/Vol] 104 mmol/L Normal 101 - 1 11 mmol/L [facility] CO2 [Moles/Vol] 26 mmol/L Normal 21 - 31 mmol/L [facility] Creatinine [Mass/Vol] 0.9 mg/dL Normal 0.5 - 1.3 mg/dL [facility] eGFR 110 mL/min/1.73 m2 Normal >=59mL/mi n/1. 73 m2 [facility] Glucose [Mass/Vol] 131 mg/dL Normal 55 - 199 mg/dL [facility] Potassium [Moles/Vol] 3.6 mmol/L Normal 3.5 - 5.3 mmol/L [facility] Sodium [Moles/Vol] 138 mmol/L Normal 135 - 145 mmol/L [facility] Troponin HS 2.80 pg/mL Low 15.90 - 38.40 pg/mL [facility] Comment on above: Interpretive Data: T he 95% CI (Confidence Interval) PPV (Positive Predictive Value) for myocardial infarction in females is 38 pg/mL, in males 51 pg/mL. The results should be used in conjunction with clinical conditions of myocardial infarction. (Access High Sensitivity Troponin I Instructions For Use, Ehsan Philomena, November 2017) Urea nitrogen [Mass/Vol] 13 mg/dL Normal 5 - 21 mg/dL [facility] Urea nitrogen/Creatinine [Mass ratio] 14 mg/mg Normal 10 - 20 [facility] COAGULATIONOrdered By: Claudette Richey on 02-15-2024 aPTT Coag (PPP) [Time] 31.3 s Normal 25.1 - 36.5 second(s) [facility] Comment on above: Interpretive Data: P arameter 15 days - 4 weeks 1 - 5 months 6 - 11 months 1 - 5 years 6 - 10 years 11 - 17 years PTT Mean: 35.4 (27.6-45.6) Mean: 33.5 (24.8-40.7) Mean: 32.4 (25.1-40.7) Mean: 31.6 (24.0-39.2) Mean: 31.6 (26.9-38.7) Mean: 31.0 (24.6-38.4) Pediatric Reference ranges were obtained from a study by Rodrigue Chavez et al. prepared from 1437 samples obtained at 7 different centers using the same coagulation reagent and instrumentation as [facility] Currently there are no coagulation studies available worldwide for children to 14 days, and no normal ranges. Heparin therapeutic range (represented by Anti-Factor Xa activity of 0.2 - 0.4 U/mL) corresponds to PTT of 56.6 - 109.0 sec. INR Coag (PPP) [Relative time] 0.99 {INR} Invalid Interpretation Code [facility] Comment on above: Interpretive Data: I NR results are specifically intended to assess patients stabilized on long-term Anticoagulation therapy suggested INR s Less Intensive Anticoagulation 2.0 3.0 Conventional Range 3.0 4.5 PT Coag (PPP) [Time] 11.1 s Normal 9.4 - 1 2.5 second(s) [facility] Comment on above: Interpretive Data: 1 5 days - 4 weeks 1 - 5 months 6 -11 months 1 5 years 6 10 years 11 -17 years Mean: 11.2 (9.5 12.6) Mean: 11.0 (9.7 12.8) Mean: 11.0 (9.8 13.0) Mean: 11.3 (9.9 13.4) Mean: 11.7 (10.0 14.6) Mean: 11.8 (10.0 - 14.1) Pediatric Reference ranges were obtained from a study by Rodrigue Chavez et al. prepared from 1437 samples obtained at 7 different centers using the same coagulation reagent and instrumentation as [facility] Currently there are no coagulation studies available worldwide for children to 14 days, and no normal ranges. ED Clinical Summaryon 2023 ED Clinical Summary ED Clinical Summary [place] [address] ED Clinical Summary Person Information Name: CHRISTIANO MCALLISTER JR [place] Age: 38 Years : 1985 Sex: Male Language: Wolof PCP: Luisa Barclay MD Marital Status: MRN: Visit Id: Visit Reason: Testicular pain; Neck pain; Medical problem - minor; left arm and facial tingling Speciality: Acuity: 3 Enc Type: Emergency Med Service: Emergency Arrival: 02/15/2024 19:30:31 Discharge: 02/15/2024 23:07:59 LOS: 000 03:37 Checkin: 02/15/2024 19:30:31 Checkout: 02/15/2024 23:07:59 Dispo Type: Home (Routine DC) EVENTS: Event Name Event Status Request Date/Time Start Date/Time Complete Date/Time Arrive Complete 02/15/2024 19:30:31 02/15/2024 19:30:31 02/15/2024 19:30:31 Document Home Meds Request 02/15/2024 19:30:31 Triage Complete 02/15/2024 19:30:31 02/15/2024 19:43:51 02/15/2024 19:43:51 Bed Assign Complete 02/15/2024 19:34:23 02/15/2024 19:34:23 02/15/2024 19:34:23 Dr Exam Complete 02/15/2024 19:34:23 02/15/2024 19:36:14 02/15/2024 19:36:14 RN Exam Complete 02/15/2024 19:34:23 02/15/2024 20:29:16 02/15/2024 20:29:16 Registration Complete 02/15/2024 19:36:14 02/15/2024 19:40:32 02/15/2024 19:40:32 Reg Complete Request 02/15/2024 19:40:32 Reg Bed Request Complete 02/15/2024 19:40:32 02/15/2024 19:40:32 02/15/2024 19:40:32 EKG Complete 02/15/2024 19:59:54 02/15/2024 20:25:46 Pending Labs Complete 02/15/2024 19:59:54 02/15/2024 20:56:31 Lab Complete 02/15/2024 19:59:54 02/15/2024 20:48:52 Patient Care Request 02/15/2024 19:59:54 RT Request 02/15/2024 19:59:54 X-Ray Complete 02/15/2024 19:59:54 02/15/2024 20:25:31 02/15/2024 21:05:10 CT Complete 02/15/2024 19:59:54 02/15/2024 20:24:33 02/15/2024 20:54:08 Meds Admin Complete 02/15/2024 19:59:54 02/15/2024 20:16:05 Pending Labs Complete 02/15/2024 20:23:23 02/15/2024 20:23:23 02/15/2024 20:48:52 Lab Complete 02/15/2024 20:23:23 02/15/2024 20:23:23 02/15/2024 20:48:52 Wet Read Request 02/15/2024 21:05:10 Discharge Complete 02/15/2024 22:58:34 02/15/2024 23:08:04 02/15/2024 23:08:04 Transfer Complete 02/15/2024 23:08:04 02/15/2024 23:08:04 02/15/2024 23:08:04 ADDRESS: [address] [place] [address] [facility] [id number] PHYS DOC NOTES: MEDICAL INFORMATION: Prescriptions Given: New Medications [facility], [address] [place] [id number], [phone] methocarbamol (Robaxin 500 mg Tab) 1 Tablets By Mouth 3 times a day for 3 Days. Refills: 0. predniSONE (predniSONE 50 mg Tab) 1 Tablets By Mouth every day for 5 Days. Refills: 0. PATIENT EDUCATION INFORMATION: Instructions: Paresthesia, [id number]; Cervical Radiculopathy, [id number] Follow up: With: [facility]: [facility] [address] [place] [id number] Business (1) In 3 days 02/18/2024 Comments: Take the steroids once daily and to you have completed the course. You can use the muscle relaxer every 8 hours as needed for muscle spasm. Please follow-up with your primary care doctor for further evaluation management. Please return to the ED for any new or worsening symptoms. With: Address: When: Luisa Barclay [facility], [place] [address] Business (1) In 3 days DIAGNOSIS: Cervical radiculopathy; Paresthesia Normal [facility] ED Note-Physicianon 02-15-20 ED Note-Physician ED Note-Physician Basic Information Time Seen: Oseas Arroyo DO 02/15/2024 19:36 Chief Complaint pt. states numbness to L hand started two fridays ago and it has since spread up his L arm, face, and into leg. also intermittent L testicle pain. states yesterday he had neck/shoulder pain that went up his neck to his skull. History of Present Illness Patient is a 38-year-old male with no past medical history presenting to the ED for evaluation of left arm numbness, in addition to left facial numbness and left leg numbness. Patient states this started as numbness in his left thumb several weeks ago however states has been intermittently spreading. Patient states the numbness will be there for a couple of hours however if he repositions his symptoms improve. Patient reported to the triage nurse that he has been having some intermittent left testicle pain when discussing this with him he states several months ago he had testicular pain however his doctor had him on antibiotics is since resolved has not had pain. Patient also states that he was working on a recliner when the numbness started again changes position and the numbness resolved. Review of Systems A 10 point review of systems is negative except as noted above. Medical and Surgical History: Reviewed and noted Social history: Lives at home Tobacco: Denies Physical Exam Vitals & Measurements T: 36.7 ???C(Oral) HR: 104(Peripheral) RR: 18 BP: 119/79 SpO2: 97% HT: 180 cm WT: 120.0 kg BMI: 37.04 General: Well developed, non toxic appearing, no acute distress HEENT: Head atraumatic, Mucosa moist, hearing grossly normal Neck: No JVD, tracheal deviation Cardiac: Regular rate, rhythm, no murmurs, or gallops, 2+ radial pulses Respiratory: Lungs clear to auscultation B/L, normal respiratory effort Abdomen: Soft non tender, no rebound or guarding, no peritoneal signs Extremities: No edema noted in the LE B/L, no tenderness to palpation Neurologic: Alert and oriented, speech clear no arm drift, no leg drift, no facial droop, reported decrease sensation to the left face, arm, NIH of 1 for subjective numbness Skin: No rashes or lesions Psych: Appropriate mood and behavior Medical Decision Making MEDICAL DECISION MAKING Number and Complexity of Problems Differential Diagnosis: [] [facility] Data External documents reviewed: [] My EKG interpretation: [] My CT interpretation: [] My X-ray interpretation: [] My Ultrasound interpretation: [] Decision rules/scores evaluated: [] Discussed with: [] Treatment and Disposition ED Course: Patient is a 38-year-old male presenting to the ED for evaluation of left arm numbness, left facial numbness in addition to intermittent left leg numbness. Patient is nontoxic and on arrival, no acute distress. Stroke alert is not called this patient symptoms and ongoing for the last 2 weeks. Due to his complaints laboratory evaluation is obtained, CT of the head cervical spine and thoracic spine are ordered. Patient is given Solu-Medrol in the ED for treatment of his symptoms. Patient's laboratory evaluation is unremarkable, CT imaging shows no acute findings there are degenerative changes noted in the cervical spine. Due to duration of symptoms IV patient is stable for outpatient workup he is given referral to neurology. I believe this is likely combination of a cervical radiculopathy and muscle spasm. Patient started on steroids, muscle relaxers. He is to follow-up with his primary care doctor in addition to neurology for further evaluation management. He is to return to the ED for any new or worsening symptoms. Shared decision making: [] Code status: [] Assessment/Plan Cervical radiculopathy (M54.12: Radiculopathy, cervical region) Paresthesia (R20.2: Paresthesia of skin) Orders: methocarbamol, 500 mg = 1 tab(s), Oral, TID, X 3 day(s), # 9 tab(s), Refills(s) 0, Pharmacy: [id number], 180, cm, 02/15/24 19:43:00 EST, Height/Length Dosing, 120, kg, 02/15/24 19:43:00 EST, Weight Dosing methylPREDNISolone, 125 mg = 2 mL, Injection, IV Push, Once, Stop date 02/15/24 19:59:00 EST, STAT, Start date 02/15/24 19:59:00 EST, 02/15/24 19:59:00 EST predniSONE, 50 mg = 1 tab(s), Oral, Daily, X 5 day(s), # 5 tab(s), Refills(s) 0, Pharmacy: [id number], 180, cm, 02/15/24 19:43:00 EST, Height/Length Dosing, 120, kg, 02/15/24 19:43:00 EST, Weight Dosing Basic Metabolic Panel CBC w/ Auto Diff CT Head or Brain w/o Contrast CT Spine Cervical w/o Contrast CT Spine Thoracic w/o Contrast ECG 12 Lead Adult ED Cardiac Monitoring eGFR Oxygen Saturation Oxygen Therapy PT & PTT Saline Lock Insert Troponin 0 Hr. XR Chest Single View Medications Administered Given methylPREDNISolone 125 mg preservative-free injection (SOLU-MEDROL), 125 mg, IV Push Disposition Plan Discharge Prescription List Prescriptions predniSONE 50 mg Tab, 50 mg= 1 tab(s), Oral, Daily Robaxin 500 mg (more content not included)... Normal [facility] Comment on above: Result Comment: Elec tronically Signed By: Oseas Arroyo DO\.br\Date and Time Signed: 02/15/24 23:02 EST ED Patient Summaryon ED Patient Summary ED Patient Summary [place] [id number] Patient Discharge Instructions Person Information Name: CHRISTIANO MCALLISTER JR Age: 38 Years Arrival Date: 02/15/2024 19:30:31 Discharge Diagnosis: Cervical radiculopathy; Paresthesia Primary Care Physician: Luisa Barclay MD Provider Information Primary Provider: Oseas Arroyo DO Advanced [employer] Roller Engraver:None The exam and treatment you received in the Emergency Department were for an urgent problem and are not intended as complete care. It is important that you follow up with a doctor, nurse practitioner, or physician???s placement assistant for ongoing care. If your symptoms become worse or you do not improve as expected and you are unable to reach your usual health care provider, you should return to the Emergency Department. We are available 24 hours a day. CHRISTIANO MCALLISTER JR has been given the following list of patient education materials, prescriptions and follow-up instructions: Follow-up Instructions: With: Address: When: Bill Salguerodict [facility], [address] [place] [address] Business (1) In 3 days 02/18/2024 Comments: Take the steroids once daily and to you have completed the course. You can use the muscle relaxer every 8 hours as needed for muscle spasm. Please follow-up with your primary care doctor for further evaluation management. Please return to the ED for any new or worsening symptoms. With: Address: When: Luisa Barclay [address] [facility], [place] [address] Business (1) In 3 days In the event that this physician does not participate in your insurance network, please consult with your insurance company to find a nearby participating provider. Patient Education Materials: Paresthesia, Cndc-hi-Lfxy; Cervical Radiculopathy, Jtps-cn-Igjn A MESSAGE TO ALL PATIENTS REGARDING OPIOIDS PRESCRIPTION OPIOIDS: WHAT YOU NEED TO KNOW Prescription opioids can be used to help relieve orovzync-ui-tpeqdn pain and are often prescribed following a surgery or injury, or for certain health conditions. These medications can be an important part of the treatment but also come with serious risks. It is important to work with your healthcare provider to make sure you are getting the safest, most effective care. WHAT ARE THE RISKS AND SIDE EFFECTS OF OPIOID USE? Prescription opioids carry serious risks of addiction and overdose, especially with prolonged use. An opioid overdose, often marked by slowed breathing, can cause sudden . The use of prescription opioids can have a number of side effects as well, even when taken as directed: ??? Tolerance???meaning you might need to take more of the medication for the same pain relief ??? Physical dependence???meaning you have symptoms of withdrawal when a medication is stopped ??? Increased sensitivity to pain ??? Constipation ??? Nausea, vomiting, and dry mouth ??? Sleepiness and dizziness ??? Confusion ??? Depression ??? Low levels of testosterone that can result in lower sex drive, energy, and strength ??? Itching and sweating RISKS ARE GREATER WITH: ??? History of drug misuse, substance use disorder, or overdose ??? Mental health conditions (such as depression or anxiety) ??? Sleep apnea ??? Older age (65 years and older) ??? Avoid alcohol while taking prescription opioids. Also, unless specifically advised by your health care provider, medications to avoid include: ??? Benzodiazepines (such as Xanax or Valium) ??? Muscle relaxants (such as Soma or Flexeril) ??? Hypnotics (such as Ambien or Lunesta) ??? Other prescription opioids KNOW YOUR OPTIONS Talk to your health care provider about ways to manage your pain that don???t involve prescription opioids. Some of these options may actually work better and have fewer risks and side effects. Options may include: ??? Pain relievers such as acetaminophen, ibuprofen, and naproxen ??? Some medication that are also used for depression or seizures ??? Physical therapy and exercise ??? Cognitive behavioral therapy, a psychological, goal-directed approach, in which patients learn how to modify physical, behavioral, and emotional triggers of pain and stress. IF YOU ARE PRESCRIBED OPIOIDS FOR PAIN: ??? Never take opioids in greater amounts or more often than prescribed. ??? Follow up with your primary health care provider. o Work together to create a plan on how to manage your pain. o Talk about ways to help manage your pain that don???t involve prescription opioids. o Talk about any and all concerns and side effects. ??? Help prevent misuse and abuse o Never sell or share prescription opioids. o Never use another person???s prescription opioids. ??? Store prescription opioids in a secure place and out of reach of others (this may include visitor (more content not included)... Normal [facility] HEMATOLOGYOrdered By: SYSTEM SYSTEM on 02-15-2024 Basophils/100 WBC (Bld) 1.0 % Normal 0.0 - 2.0 % Remisol Heme Basophils/Leukocytes Auto (Bld) [Pure # fraction] 0.1 E9/L Normal 0.0 - 0.2 E9/L Remisol Heme Eosinophils (Bld) [#/Vol] 0.1 E9/L Normal 0.0 - 0.5 E9/L Remisol Heme Eosinophils/100 WBC (Bld) 1.1 % Normal 0.0 - 8.0 % Remisol Heme Erythrocyte distribution width (RBC) [Ratio] 13.6 % Normal 10.9 - 14.2 % Remisol Heme Hematocrit (Bld) [Volume fraction] 44.6 % Normal 37.7 - 49.0 % Remisol Heme Hemoglobin (Bld) [Mass/Vol] 15.6 g/dL Normal 13.5 - 17.5 gm/dL Remisol Heme Lymphocytes (Bld) [#/Vol] 2.0 E9/L Normal 1.0 - 4.0 E9/L Remisol Heme Lymphocytes/100 WBC (Bld) 25.7 % Normal 14.0 - 50.0 % Remisol Heme MCH (RBC) [Entitic mass] 29.0 pg Normal 27.0 - 34.0 pg Remisol Heme MCHC (RBC) [Mass/Vol] 34.9 g/dL Normal 31.4 - 36.0 gm/dL Remisol Heme MCV (RBC) [Entitic vol] 83.1 fL Normal 80.0 - 100.0 fL Remisol Heme Monocytes (Bld) [#/Vol] 0.6 E9/L Normal 0.2 - 1.0 E9/L Remisol Heme Monocytes/100 WBC (Bld) 8.1 % Normal 4.0 - 14.0 % Remisol Heme Neutrophils (Bld) [#/Vol] 5.1 E9/L Normal 2.0 - 7.5 E9/L Remisol Heme Neutrophils/100 WBC (Bld) 64.1 % Normal 36.0 - 75.0 % Remisol Heme Platelet 253.0 E9/L Normal 150.0 - 500.0 E9/L Remisol Heme Platelet mean volume (Bld) [Entitic vol] 7.4 fL Normal 6.4 - 10.8 fL Remisol Heme RBC (Bld) [#/Vol] 5.4 E12/L Normal 4.3 - 5.9 E12/L Remisol Heme WBC corrected for nucl RBC Auto (Bld) [#/Vol] 8.0 E9/L Normal 4.0 - 11.0 E9/L Remisol Heme PT & PTTon 02-15-2024 aPTT Coag (PPP) [Time] 31.3 second(s) Normal 25.1-36.5 [facility] Comment on above: Result Comment: Para meter 15 days - 4 weeks 1 - 5 months 6 - 11 months 1 - 5 years 6 - 10 years 11 - 17 years PTT Mean: 35.4 (27.6-45.6) Mean: 33.5 (24.8-40.7) Mean: 32.4 (25.1-40.7) Mean: 31.6 (24.0-39.2) Mean: 31.6 (26.9-38.7) Mean: 31.0 (24.6-38.4) Pediatric Reference ranges were obtained from a study by Rodrigue Chavez et al. prepared from 1437 samples obtained at 7 different centers using the same coagulation reagent and instrumentation [place] [facility] [place] Currently there are no coagulation studies available worldwide for children to 14 days, and no normal ranges. Heparin therapeutic range (represented by Anti-Factor Xa activity of 0.2 - 0.4 U/mL) corresponds to PTT of 56.6 - 109.0 sec. Performed By: #### 1 [id number] #### [facility] [address] [place] [address] INR Coag (PPP) [Relative time] 0.99 {INR} Invalid Interpretation Code [facility] Comment on above: Result Comment: INR results are specifically intended to assess patients stabilized on long-term Anticoagulation therapy suggested INR???s ???Less Intensive Anticoagulation??? 2.0 ??? 3.0 Conventional Range 3.0 ??? 4.5 Performed By: #### 1 [id number] #### [facility] [address] [place] [address] PT Coag (PPP) [Time] 11.1 second(s) Normal 9.4-12.5 [facility] Comment on above: Result Comment: 15 d ays - 4 weeks 1 - 5 months 6 -11 months 1 ??? 5 years 6 ??? 10 years 11 -17 years Mean: 11.2 (9.5 ??? 12.6) Mean: 11.0 (9.7 ??? 12.8) Mean: 11.0 (9.8 ??? 13.0) Mean: 11.3 (9.9 ??? 13.4) Mean: 11.7 (10.0 ??? 14.6) Mean: 11.8 (10.0 - 14.1) Pediatric Reference ranges were obtained from a study by Rodrigue Chavez et al. prepared from 1437 samples obtained at 7 different centers using the same coagulation reagent and instrumentation [place] [facility] Currently there are no coagulation studies available worldwide for children to 14 days, and no normal ranges. Performed By: #### 1 [id number] #### [facility] [address] [place] [address] Troponin 0 Hr.on 02-15-2024 Troponin HS 2.80 pg/mL Low 15.90-38.40 [facility] Comment on above: Result Comment: The 95% CI (Confidence Interval) PPV (Positive Predictive Value) for myocardial infarction in females is 38 pg/mL, in males 51 pg/mL. The results should be used in conjunction with clinical conditions of myocardial infarction. (Access High Sensitivity Troponin I Instructions For Use, [facility], November 2017) Performed By: #### 1 [id number] #### [facility] [address] [place] [address] eGFRon 02-15-2024 eGFR 110 mL/min/1.73 m2 Normal >=59 [facility] Comment on above: Performed By: #### 1 [id number] #### [facility] [address] [place] [address] US SANDRA DOP LEG LTon 04-15-19 23 [...] the left lower extremity. Electronically authenticated by: BILL MUÑOZ Date: 2022-04-15 14:52 Normal [facility] CBC AUTO DIFFon 04-13-2022 BASO # 0.0 103/ul Normal 0.0-0.1 [facility] Comment on above: Performed By: #### C BC #### [facility] [address] [place], [place] [address] Dr. Bacilio Kim Basophils/100 WBC (Bld) 0.1 % Critically low 0.2-2.0 [facility] Comment on above: Performed By: #### C BC #### [facility] [address] [place] [address] Dr. Bacilio Kim EO # 0.0 103/ul Normal 0.0-0.7 [facility] Comment on above: Performed By: #### C BC #### [facility] [address] [place] [address] Dr. Bacilio Kim Eosinophils/100 WBC (Bld) 0.0 % Critically low 0.9-7.0 [facility] Comment on above: Performed By: #### C BC #### [facility] [address] [place] [address] Dr. Bacilio Kim Erythrocyte distribution width (RBC) [Ratio] 12.5 % Normal 11.0-15.0 [facility] Comment on above: Performed By: #### C BC #### [facility] [address] [place] [address] Dr. Bacilio Kim Hematocrit (Bld) [Volume fraction] 43.3 % Normal 42.0-54.0 [facility] Comment on above: Performed By: #### C BC #### [facility] [address] [place] [address] Dr. Bacilio Kim Hemoglobin (Bld) [Mass/Vol] 16.1 g/dL Normal 14.0-18.0 [facility] Comment on above: Performed By: #### C BC #### [facility] [address] [place] [address] Dr. Bacilio Kim IG # 0.04 10e3/ul Critically high 0.00-0.03 [facility] Comment on above: Performed By: #### C BC #### [facility] [address] [place] [address] Dr. Bacilio Kim IG % 0.3 % Normal 0.0-0.5 [facility] Comment on above: Performed By: #### C BC #### [facility] [address] [place] [address] Dr. Bacilio Kim LYMPH # 0.6 103/ul Critically low 1.2-3.8 [facility] Comment on above: Performed By: #### C BC #### [facility] [address] [place] [address] [address] Bacilio Kim Lymphocytes/100 WBC (Bld) 3.8 % Critically low 20.5-60.0 [facility] Comment on above: Performed By: #### C BC #### [facility] [address] [place] [address] [address] Bacilio Kim MANUAL DIFF REQ NO Normal [facility] Comment on above: Performed By: #### C BC #### [facility] [address] [place] [address] Dr. Bacilio Kim MCH (RBC) [Entitic mass] 28.6 pg Normal 25.9-34.0 [facility] Comment on above: Performed By: #### C BC #### [facility] [address] [place] [address] Dr. Bacilio Kim MCHC (RBC) [Mass/Vol] 37.2 g/dL Critically high 29.9-35.2 [facility] Comment on above: Performed By: #### C BC #### [facility] [address] [place] [address] Dr. Bacilio Kim MCV (RBC) [Entitic vol] 77.0 fL Critically low 80.0-94.0 [facility] Comment on above: Performed By: #### C BC #### [facility] [address] [place] [address] Dr. Bacilio Kim MONO # 0.8 103/ul Normal 0.3-0.8 [facility] Comment on above: Performed By: #### C BC #### [facility] [address] [place] [address] Dr. Bacilio Kim Monocytes/100 WBC (Bld) 5.5 % Normal 1.7-12.0 [facility] Comment on above: Performed By: #### C BC #### [facility] [address] [place] [address] Dr. Bacilio Kim NEUT # 13.4 103/ul Critically high 1.4-6.5 [facility] [place] Comment on above: Performed By: #### C BC #### [facility] [address] [place] [address] Dr. Baciilo Kim Neutrophils/100 WBC (Bld) 90.3 % Critically high 43.0-75.0 [facility] Comment on above: Performed By: #### C BC #### [facility] [address] [place] [address] Dr. Bacilio Kim Platelet mean volume (Bld) [Entitic vol] 8.9 fL Critically low 9.5-13.5 [facility] Comment on above: Performed By: #### C BC #### [facility] [address] [place] [address] Dr. Bacilio Kim PLT 170 103/ul Normal 150-450 [facility] Comment on above: Performed By: #### C BC #### [facility] [address] [place] [address] Dr. Bacilio Kim RBC 5.62 106/ul Normal 4.70-6.10 [facility] Comment on above: Performed By: #### C BC #### [facility] [address] [place] [address] Dr. Bacilio Kim WBC 14.8 103/ul Critically high 4.0-11.0 [facility] [place] Comment on above: Performed By: #### C BC #### [facility] [address] [place] [address] Dr. Bacilio Kim ER URINE PROFILEon 3 Bilirubin Ql (U) SMALL Abnormal NEGATIVE [facility] Comment on above: Performed By: #### FRANCISCO GALLOWAYRO #### [facility] [address] [place] [address] Dr. Bacilio Kim Clarity (U) CLEAR Normal CLEAR [facility] Comment on above: Performed By: #### FRANCISCO GALLOWAYRO #### [facility] [address] [place] [address] Dr. Bacilio Kim Color (U) YELLOW Normal YELLOW [facility] Comment on above: Performed By: #### FRANCISCO GALLOWAYRO #### [facility] [address] [place] [address] Dr. Bacilio DIAZ A micrscopic examination will be performed if indicated. Normal [facility] Comment on above: Performed By: #### FRANCISCO GALLOWAYRO #### [facility] [address] [place] [address] Dr. Bacilio Kim Glucose Ql (U) Negative Normal NEGATIVE [facility] Comment on above: Performed By: #### FRANCISCO GALLOWAYRO #### [facility] [address] [place] [address] Dr. Bacilio Kim Hemoglobin Ql (U) MODERATE Abnormal NEGATIVE [facility] Comment on above: Performed By: #### FRANCISCO GALLOWAYRO #### [facility] [address] [place] [address] Dr. Bacilio Kim Ketones Ql (U) 15 mg/dl Abnormal NEGATIVE [facility] Comment on above: Performed By: #### FRANCISCO GALLOWAYRO #### [facility] [address] [place] [address] Dr. Bacilio Kim LEUKOCYTES Negative Normal NEGATIVE [facility] Comment on above: Performed By: #### FRANCISCO GALLOWAYRO #### [facility] [address] [place] [address] Dr. Bacilio Kim Nitrite Ql (U) Negative Normal NEGATIVE [facility] Comment on above: Performed By: #### SHEILA GALLOWAYICRO #### [facility] [address] [place] [address] Dr. Bacilio Kim pH (U) 5.5 [pH] Normal 5-9 [facility] Comment on above: Performed By: #### FRANCISCO GALLOWAYRO #### [facility] [address] [place] [address] Dr. Bacilio Kim SPEC GRAVITY 1.025 Normal 1.005-<=1.025 [facility] Comment on above: Performed By: #### SHEILA GALLOWAYICRO #### [facility] [address] [place] [address] Dr. Bacilio Kim UA PROTEIN TRACE Normal NEGATIVE/ TRACE [facility] Comment on above: Performed By: #### Kelly VILLANUEVA, FRANCISCORO #### [facility] [address] [place] [address] Dr. Bacilio Kim UR MICRO IND INDICATED Normal [facility] Comment on above: Performed By: #### E RICH, SHEILAICRO #### [facility] [address] [place] [address] Dr. Bacilio Kim Urobilinogen Qn (U) 1.0 {Mai'U}/dL Normal 0.2 - 1. 0 [facility] Comment on above: Performed By: #### E RICH, FRANCISCORO #### [facility] [address] [place] [address] Dr. Bacilio Kim INFLUENZA A AND B AGon 04-13 INFLUANE SEE BELOW Normal [facility] Comment on above: Result Comment: Nega tive for Flu A protein angiten. Infection due to Flu A cannot be ruled out. Flu A angiten in the sample may be below the detection limit of the test. Performed By: #### I NFLUAB #### [facility] [address] [place] [address] Dr. Bacilio Kim INFLUBNEGH SEE BELOW Normal [facility] Comment on above: Result Comment: Nega tive for Flu B protein antigen. Infection due to Flu B cannot be ruled out. Flu B antigen in the sample may be below the detection limit of the test. Performed By: #### I NFLUAB #### [facility] [address] [place] [address] Dr. Bacilio Kim INFLUENZA A AG Negative Normal NEGATIVE SEE COMMENT [facility] Comment on above: Performed By: #### I NFLUAB #### [facility] [address] [place] [address] Dr. Bacilio Kim INFLUENZA B AG Negative Normal NEGATIVE SEE COMMENT [facility] Comment on above: Performed By: #### I NFLUAB #### [facility] [address] [place] [address] Dr. Bacilio Kim PROF 14(COMP METB)on 023 Albumin [Mass/Vol] 4.0 g/dL Normal 3.4-5.0 [facility] Comment on above: Performed By: #### C MP #### [facility] [address] [place] [address] [address] Bacilio Kim Albumin/Globulin [Mass ratio] 1.2 {ratio} Normal [facility] Comment on above: Performed By: #### C MP #### [facility] [address] [place] [address] Dr. Bacilio Kim ALP [Catalytic activity/Vol] 89 U/L Normal 46-116 [facility] Comment on above: Performed By: #### C MP #### [facility] [address] [place] [address] [address] Bacilio Kim ALT [Catalytic activity/Vol] 29 U/L Normal 16-63 [facility] Comment on above: Performed By: #### C MP #### [facility] [address] [place] [address] Dr. Bacilio Kim Anion gap [Moles/Vol] 14.1 mmol/L Normal [facility] Comment on above: Performed By: #### C MP #### [facility] [address] [place] [address] Dr. Bacilio Kim AST [Catalytic activity/Vol] 24 U/L Normal 15-37 [facility] Comment on above: Performed By: #### C MP #### [facility] [address] [place] [address] Dr. Bacilio Kim Bilirubin [Mass/Vol] 1.0 mg/dL Normal 0.2-1.0 [facility] Comment on above: Performed By: #### C MP #### [facility] [address] [place] [address] Dr. Bacilio Kim Calcium [Mass/Vol] 9.0 mg/dL Normal 8.5-10.1 [facility] Comment on above: Performed By: #### C MP #### [facility] [address] [place] [address] Dr. Bacilio Kim Chloride [Moles/Vol] 99 mmol/L Normal 98-107 [facility] Comment on above: Performed By: #### C MP #### [facility] [address] [place] [address] [address] Bacilio Kim CO2 [Moles/Vol] 23.6 mmol/L Normal 21.0-32.0 [facility] Comment on above: Performed By: #### C MP #### [facility] [address] [place] [address] [address] Bacilio Kim Creatinine [Mass/Vol] 1.00 mg/dL Normal 0.70-1.30 [facility] Comment on above: Performed By: #### C MP #### [facility] [address] [place] [address] Dr. Bacilio Kim EGFR-AF KOSOVAN >60 Normal >=60 [facility] Comment on above: Performed By: #### C MP #### [facility] [address] [place] [address] Dr. Bacilio Kim EGFR-NON AF KOSOVAN >60 Normal >=60 [facility] Comment on above: Performed By: #### C MP #### [facility] [address] [place] [address] Dr. Bacilio Kim Globulin (S) [Mass/Vol] 3.4 g/dL Normal [facility] Comment on above: Performed By: #### C MP #### [facility] [address] [place] [address] Dr. Bacilio Kim Glucose [Mass/Vol] 100 mg/dL Normal 74-106 [facility] [place] [facility] Comment on above: Performed By: #### C MP #### [facility] [address] [place] [address] Dr. Bacilio Kim Potassium [Moles/Vol] 3.7 mmol/L Normal 3.5-5.1 [facility] Comment on above: Performed By: #### C MP #### [facility] [address] [place] [address] Dr. Bacilio Kim Protein [Mass/Vol] 7.4 g/dL Normal 6.4-8.2 [facility] [place] [facility] Comment on above: Performed By: #### C MP #### [facility] [address] [place] [address] Dr. Bacilio Kim Sodium [Moles/Vol] 133 mmol/L Critically low 136-145 [facility] Comment on above: Performed By: #### C MP #### [facility] [address] [place] [address] Dr. Bacilio Kim Urea nitrogen [Mass/Vol] 17.0 mg/dL Normal 7.0-18.0 [facility] Comment on above: Performed By: #### C MP #### [facility] [address] [place] [address] Dr. Bacilio Kim Urea nitrogen/Creatinine [Mass ratio] 17.0 mg/mg Normal [facility] Comment on above: Performed By: #### C MP #### [facility] [address] [place] [address] Dr. Bacilio Kim URINE MICROSCOPIC ONLYon BACTERIA TRACE Abnormal NONE SEEN [facility] Comment on above: Performed By: #### Kelly VILLANUEVA UMICRO #### [facility] [address] [place] [address] Dr. Bacilio Kim Bacteria identified Cx Nom (U) NOT INDICATED Normal [facility] Comment on above: Performed By: #### Kelly VILLANUEVA UMICRO #### [facility] [address] [place] [address] Dr. Bacilio Kim CAST NONE SEEN Normal NONE SEEN [facility] Comment on above: Performed By: #### E RUAshu, UMICRO #### [facility] [address] [place] [address] Dr. Bacilio Kim Crystals LM Nom (Urine sed) NONE SEEN Normal NONE SEEN [facility] Comment on above: Performed By: #### E RUR, UMICRO #### [facility] [address] [place] [address] Dr. Bacilio Kim Epithelial cells LM Ql (Urine sed) RARE Normal NONE SEEN /RARE [facility] Comment on above: Performed By: #### E RUR, UMICRO #### [facility] [address] [place] [address] Dr. Bacilio Kim MUCOUS TRACE Abnormal NONE SEEN [facility] Comment on above: Performed By: #### E RUR UMICRO #### [facility] [address] [place], [place] [address] Dr. Bacilio Kim RBC 5-10 Abnormal 0-2 [facility] Comment on above: Performed By: #### KEI GALLOWAY #### [facility] [address], [place] [address] Dr. Bacilio Kim WBC 0-2 Abnormal NONE SEEN [facility] Comment on above: Performed By: #### KEI GALLOWAY #### [facility] [address], [place] [address] Dr. Bacilio Kim XR CHEST 2 Von [...] MARYAM DURAND Date: 2022-04-13 16:50 Normal [facility] Vital Signs Date Time Vital Sign Value Performing Clinician Faci liliya 02-15-2024 22:00-0500 Diastolic blood pressure 88 mm[Hg] Willisinn Dokken [facility] 02-15-2024 22:00-0500 Heart rate 76 /min Jaclynn Dokkjuarez [facility] 02-15-2024 22:00-0500 Mean blood pressure 100 mm[Hg] Williskamilan Dokken [facility] 02-15-2024 22:00-0500 Respiratory rate 16 /min kerrikamilan Dokken [facility] 02-15-2024 22:00-0500 SaO2% (BldA) [Mass fraction] 96 % Williskamilan Dokken [facility] 02-15-2024 22:00-0500 Systolic blood pressure 125 mm[Hg] Kaylinn Dokken [facility] 02-15-2024 21:00-0500 Diastolic blood pressure 86 mm[Hg] Devonylinn Dokken [facility] 02-15-2024 21:00-0500 Heart rate 88 /min Devonylinn Dokken [facility] 02-15-2024 21:00-0500 SaO2% (BldA) [Mass fraction] 95 % Willisinn Dokken [facility] 02-15-2024 21:00-0500 Systolic blood pressure 127 mm[Hg] Devonylinn Dokken [facility] 02-15-2024 20:00-0500 Heart rate 91 /min Willisinn Dokken [facility] 02-15-2024 19:35-0500 Body temperature 98.06 [degF] Willisinn Dokken [facility] 02-15-2024 19:35-0500 Diastolic blood pressure 79 mm[Hg] Devonylinn Dokken [facility] 02-15-2024 19:35-0500 Heart rate 104 /min Willisinn Dokken [facility] 02-15-2024 19:35-0500 Systolic blood pressure 119 mm[Hg] Devonylinn Dokken [facility] Encounters Encounter Date Encounter Type Care Provider Facility Start: 02-15-2024 End: 02-15-2024 Emergency department patient visit Oseas Arroyo [facility] Start: 04-15-2022 End: 04-16-[address] LUISA BARCLAY . Facility: Start: 04-13-2022 End: 04-13-[address] LUISA BARCLAY . Facility:[facility] Payers Date Payer Category Payer Unknown [id number] [id number] [id number] 1985 Unknown [id number] [id number] [id number] 1985 Unknown [id number] 1985 Unknown [id number] [id number] 1961 Unknown [id number] Social History Date Type Detail Facility Tobacco Current vaping o r e-cigarette use Smokeless Tobacco Use:. Cigarettes, Vaping [facility] Tobacco smoking status No Smoking Status Entered [facility] Sex Assigned At Male [facility] Functional Status Date Assessment Result Facility 02-15-2024 Functional Status N/A [facility] Hospital Discharge instructions 02-16-2024 Note Date & Type Note Facility 02-16-2024 Hospital Discharg e instructions Patient Education 02/15/2024 23:08:05 Paresthesia, Yiem-fb-Zwel Paresthesia Paresthesia is a burning or prickling feeling. This feeling can happen in any part of the body. It often happens in the hands, arms, legs, or feet. Usually, it is not painful. In most cases, the feeling goes away in a short time and is not a sign of a serious problem. If you have paresthesia that lasts a long time, you need to see your doctor. Follow these instructions at home: Nutrition Eat a healthy diet. This includes: Eating foods that are high in fiber. These include beans, whole grains, and fresh fruits and vegetables. Limiting foods that are high in fat and sugar. These include fried or sweet foods. Alcohol use Do not drink alcohol if: ?Your doctor tells you not to drink. ?You are , may be , or are planning to become . If you drink alcohol: ?Limit how much you have to: ?0 1 drink a day for women. ?0 2 drinks a day for men. ?Know how much alcohol is in your drink. In the [place] one drink equals one 12 oz bottle of beer (355 mL), one 5 oz glass of wine (148 mL), or one 1 oz glass of hard liquor (44 mL). General instructions Take mcip-iqk-zshsmws and prescription medicines only as told by your doctor. Do not smoke or use any products that contain nicotine or tobacco. If you need help quitting, ask your doctor. If you have diabetes, work with your doctor to make sure your blood sugar stays in a healthy range. If your feet feel numb: ?Check for redness, warmth, and swelling every day. ?Wear padded socks and comfortable shoes. These help protect your feet. Keep all follow-up visits. Contact a doctor if: You have paresthesia that gets worse or does not go away. You lose feeling (have numbness) after an injury. Your burning or prickling feeling gets worse when you walk. You have pain or cramps. You feel dizzy or you faint. You have a rash. Get help right away if: You feel weak or have new weakness in an arm or leg. You have trouble walking or moving. You have problems speaking, understanding, or seeing. You feel confused. You cannot control when you pee (urinate) or poop (have a bowel movement). These symptoms may be an emergency. Get help right away. Call 911. Do not wait to see if the symptoms will go away. Do not drive yourself to the hospital. Summary Paresthesia is a burning or prickling feeling. It often happens in the hands, arms, legs, or feet. In most cases, the feeling goes away in a short time and is not a sign of a serious problem. If you have paresthesia that lasts a long time, you need to be seen by your doctor. This information is not intended to replace advice given to you by your health care provider. Make sure you discuss any questions you have with your health care provider. Document Revised: 12/03/2021 Document Reviewed: 12/03/2021 [email or web address] Patient Education 2023 [employer] 02/15/2024 23:08:05 Cervical Radiculopathy, Smcv-gh-Uuep Cervical Radiculopathy Cervical radiculopathy means that a nerve in the neck (a cervical nerve) is pinched or bruised. This can happen because of an injury to the cervical spine (vertebrae) in the neck, or as a normal part of getting older. This condition can cause pain or loss of feeling (numbness) that runs from your neck all the way down to your arm and fingers. Often, this condition gets better with rest. Treatment may be needed if the condition does not get better. What are the causes? A neck injury. A bulging disk in your spine. Sudden muscle tightening (muscle spasms). Tight muscles in your neck due to overuse. Arthritis. Breakdown in the bones and joints of the spine (spondylosis) due to getting older. Bone spurs that form near the nerves in the neck. What are the signs or symptoms? Pain. The pain may: ?Run from the neck to the arm and hand. ?Be very bad or irritating. ?Get worse when you move your neck. Loss of feeling or tingling in your arm or hand. Weakness in your arm or hand, in very bad cases. How is this treated? In many cases, treatment is not needed for this condition. With rest, the condition often gets better over time. If treatment is needed, options may include: Wearing a soft neck collar (cervical collar) for short periods of time. Doing exercises (physical therapy) to strengthen your neck muscles. Taking medicines. Having shots (injections) in your spine, in very bad cases. Having surgery. This may be needed if other treatments do not help. The type of surgery that is used will depend on the cause of your condition. Follow these instructions at home: If you have a soft neck collar: Wear it as told by your doctor. Take it off only as told by your doctor. Ask your doctor if you can take the collar off for cleaning and bathing. If you are allowed to take the collar off for cleaning or bathing: ?Follow instructions from your doctor about how to take off the collar safely. ?Clean the collar by wiping it with mild soap and water and drying it completely. ?Take out any removable pads in the collar every 1 2 days. Wash them by hand with soap and water. Let them air-dry completely before you put them back in the collar. ?Check your skin under the collar for redness or sores. If you see any, tell your doctor. Managing pain Take iutq-prm-ocamfsl and prescription medicines only as told by your doctor. If told, put ice on the painful area. To do this: ?If you have a soft neck collar, take if off as told by your doctor. ?Put ice in a plastic bag. ?Place a towel between your skin and the bag. ?Leave the ice on for 20 minutes, 2 3 times a day. ?Take off the ice if your skin turns bright red. This is very important. If you cannot feel pain, heat, or cold, you have a greater risk of damage to the area. If using ice does not help, you can try using heat. Use the heat source that your doctor recommends, such as a moist heat pack or a heating pad. ?Place a towel between your skin and the heat source. ?Leave the heat on for 20 30 minutes. ?Take off the heat if your skin turns bright red. This is very important. If you cannot feel pain, heat, or cold, you have a greater risk of getting burned. You may try a gentle neck and shoulder rub (massage). Activity Rest as needed. Return to your normal activities when your doctor says that it is safe. Do exercises as told by your doctor or physical therapist. You may have to avoid lifting. Ask your doctor how much you can safely lift. General instructions Use a flat pillow when you sleep. Do not drive while wearing a soft neck collar. If you do not have a soft neck collar, ask your doctor if it is safe to drive while your neck heals. Ask your doctor if you should avoid driving or using machines while you are taking your medicine. Do not smoke or use any products that contain nicotine or tobacco. If you need help quitting, ask your doctor. Keep all follow-up visits. Contact a doctor if: Your condition does not get better with treatment. Get help right away if: Your pain gets worse and medicine does not help. You lose feeling or feel weak in your hand, arm, face, or leg. You have a high fever. Your neck is stiff. You cannot control when you poop or pee (have incontinence). You have trouble with walking, balance, or talking. Summary Cervical radiculopathy means that a nerve in the neck is pinched or bruised. A nerve can get pinched from a bulging disk, arthritis, an injury to the neck, or other causes. Symptoms include pain, tingling, or loss of feeling that goes from the neck to the arm or hand. Weakness in your arm or hand can happen in very bad cases. Treatment may include resting, wearing a soft neck collar, and doing exercises. You might need to take medicines for pain. In very bad cases, shots or surgery may be needed. This information is not intended to replace advice given to you by your health care provider. Make sure you discuss any questions you have with your health care provider. Document Revised: 09/27/2021 Document Reviewed: 09/27/2021 [email or web address] Patient Education 2023 [employer]. Follow Up Care 02/15/2024 19:33:12 With:Bill Carballo Address: [address] [place] [address]- Business (1) When:02/18/2024 Comments:Take the steroids once daily and to you have completed the course. You can use the muscle relaxer every 8 hours as needed for muscle spasm. Please follow-up with your primary care doctor for further evaluation management. Please return to the ED for any new or worsening symptoms. With:Luisa Barclay Address: [address] [place] [id number]- Business (1) When:Within 3 Day(s) [facility] Clinical Note 02-15-2024 Note Date & Type Note Facility 02-15-2024 Note ED Patient Education Note Neurology Paresthesia Paresthesia is a burning or prickling feeling. This feeling can happen in any part of the body. It often happens in the hands, arms, legs, or feet. Usually, it is not painful. In most cases, the feeling goes away in a short time and is not a sign of a serious problem. If you have paresthesia that lasts a long time, you need to see your doctor. Follow these instructions at home: Nutrition Eat a healthy diet. This includes: ??? Eating foods that are high in fiber. These include beans, whole grains, and fresh fruits and vegetables. ??? Limiting foods that are high in fat and sugar. These include fried or sweet foods. Alcohol use ??? Do not drink alcohol if: ? Your doctor tells you not to drink. ? You are , may be , or are planning to become . ??? If you drink alcohol: ? Limit how much you have to: ? 0?1 drink a day for women. ? 0?2 drinks a day for men. ? Know how much alcohol is in your drink. In the [place] one drink equals one 12 oz bottle of beer (355 mL), one 5 oz glass of wine (148 mL), or one 1? oz glass of hard liquor (44 mL). General instructions ??? Take jubi-cei-eftsvjq and prescription medicines only as told by your doctor. ??? Do not smoke or use any products that contain nicotine or tobacco. If you need help quitting, ask your doctor. ??? If you have diabetes, work with your doctor to make sure your blood sugar stays in a healthy range. ??? If your feet feel numb: ? Check for redness, warmth, and swelling every day. ? Wear padded socks and comfortable shoes. These help protect your feet. ??? Keep all follow-up visits. Contact a doctor if: ??? You have paresthesia that gets worse or does not go away. ??? You lose feeling (have numbness) after an injury. ??? Your burning or prickling feeling gets worse when you walk. ??? You have pain or cramps. ??? You feel dizzy or you faint. ??? You have a rash. Get help right away if: ??? You feel weak or have new weakness in an arm or leg. ??? You have trouble walking or moving. ??? You have problems speaking, understanding, or seeing. ??? You feel confused. ??? You cannot control when you pee (urinate) or poop (have a bowel movement). These symptoms may be an emergency. Get help right away. Call 911. ??? Do not wait to see if the symptoms will go away. ??? Do not drive yourself to the hospital. Summary ??? Paresthesia is a burning or prickling feeling. It often happens in the hands, arms, legs, or feet. ??? In most cases, the feeling goes away in a short time and is not a sign of a serious problem. ??? If you have paresthesia that lasts a long time, you need to be seen by your doctor. This information is not intended to replace advice given to you by your health care provider. Make sure you discuss any questions you have with your health care provider. Document Revised: 12/03/2021 Document Reviewed: 12/03/2021 [email or web address] Patient Education ? 2023 [employer]. Orthopedics Cervical Radiculopathy Cervical radiculopathy means that a nerve in the neck (a cervical nerve) is pinched or bruised. This can happen because of an injury to the cervical spine (vertebrae) in the neck, or as a normal part of getting older. This condition can cause pain or loss of feeling (numbness) that runs from your neck all the way down to your arm and fingers. Often, this condition gets better with rest. Treatment may be needed if the condition does not get better. What are the causes? A neck injury. ??? A bulging disk in your spine. ??? Sudden muscle tightening (muscle spasms). ??? Tight muscles in your neck due to overuse. ??? Arthritis. ??? Breakdown in the bones and joints of the spine (spondylosis) due to getting older. ??? Bone spurs that form near the nerves in the neck. What are the signs or symptoms? Pain. The pain may: ? Run from the neck to the arm and hand. ? Be very bad or irritating. ? Get worse when you move your neck. ??? Loss of feeling or tingling in your arm or hand. ??? Weakness in your arm or hand, in very bad cases. How is this treated? In many cases, treatment is not needed for this condition. With rest, the condition often gets better over time. If treatment is needed, options may include: ??? Wearing a soft neck collar (cervical collar) for short periods of time. ??? Doing exercises (physical therapy) to strengthen your neck muscles. ??? Taking medicines. ??? Having shots (injections) in your spine, in very bad cases. ??? Having surgery. This may be needed if other treatments do not help. The type of surgery that is used will depend on the cause of your condition. Follow these instructions at home: If you have a soft neck collar: ??? Wear it as told by your doctor. Take it off only as told by your doctor. ??? Ask your doctor if (more content not included)... [facility] Evaluation + Plan note 02-15-2024 Note Date & Type Note Facility 02-15-2024 Evaluation + Plan note Extrac ryan from: Title:ED Note Author:Oseas Arroyo DO Date :02/15/24 Cervical radiculopathy (M54. 12: Radiculopathy, cervical region) Paresthesia (R20.2: Paresthesia of skin) Orders: methocarbamol, 500 mg = 1 tab(s), Oral, TID, X 3 day(s), # 9 tab(s), Refills(s) 0, Pharmacy: [id number], 180, cm, 02/15/24 19:43:00 EST, Height/Length Dosing, 120, kg, 02/15/24 19:43:00 EST, Weight Dosing methylPREDNISolone, 125 mg = 2 mL, Injection, IV Push, Once, Stop date 02/15/24 19:59:00 EST, STAT, Start date 02/15/24 19:59:00 EST, 02/15/24 19:59:00 EST predniSONE, 50 mg = 1 tab(s), Oral, Daily, X 5 day(s), # 5 tab(s), Refills(s) 0, Pharmacy: [id number], 180, cm, 02/15/24 19:43:00 EST, Height/Length Dosing, 120, kg, 02/15/24 19:43:00 EST, Weight Dosing Basic Metabolic Panel CBC w/ Auto Diff CT Head or Brain w/o Contrast CT Spine Cervical w/o Contrast CT Spine Thoracic w/o Contrast ECG 12 Lead Adult ED Cardiac Monitoring eGFR Oxygen Saturation Oxygen Therapy PT & PTT Saline Lock Insert Troponin 0 Hr. XR Chest Single View [facility] Hospital course Narrative Note Date & Type Note Facility Hospital course Narrative No data available for this section [facility] Progress note Note Date & Type Note Facility Progress note No data available for this section [facility] Summary Purpose Family History No Family History Records Found No data available for this section No Family History Records FoundNo Family History Records FoundNo Family History Records FoundNo Family History Records FoundNo Family History Records FoundNo Family History Records Found Advance Directives No Advanced Directives Records FoundNo Advanced Directives Records FoundNo Advanced Directives Records FoundNo Advanced Directives Records FoundNo Advanced Directives Records FoundNo Advanced Directives Records FoundNo Advanced Directives Records Found Additional Source Comments (unrecognized sect ion and content) No Status Records FoundNo Status Records FoundNo Status Records FoundNo Status Records FoundNo Status Records FoundNo Status Records FoundNo Status Records Found INFORMATION SOURCE (unrecogn ized section and content) DATE CREATED AUTHOR [facility]30/2022 [facility] DATE CREATED AUTHOR AUTHOR'S ORGANIZ ATION 02/16/2024 [facility] DATE CREATED AUTHOR AUTHOR'S ORGANIZ ATION 02/20/2024 [facility] Patient Care team informatio n (unrecognized section and content) Personnel Name: Luisa Barclay MD Address: Address: [address] [place] [address] FOR RECORDS PERTAINING TO PATIENTS WHO ARE [...] BE BASED ON THE PRIMARY CLINICAL RECORDS. [facility] [employer] [facility]. provides no warranty or guarantee of the accuracy or completeness of information in this document.
--- NOTE | 2025-01-15 11:33 | CT_ITS ---
The [address] [address] Patient Name: SOL MCALLISTER MRN: [id number] date: 1985 Sex: M Assigned Patient Location: ER Current Patient Location: Accession/Order Number: [id number] Exam Date: 01/15/2025 11:45 Report Date: 01/15/2025 12:31 At the request of: SHONA HA MD Procedure: CT cervical spine wo con CT CERVICAL SPINE WITHOUT CONTRAST WITH 3D RECONSTRUCTIONS: CLINICAL HISTORY: left arm pain/numbness COMPARISON: 06/24/2018 TECHNIQUE: Spiral axial unenhanced images were obtained through the cervical spine. Sagittal, coronal and 3D volume-rendered reconstructions were also reviewed. This CT exam was performed using one or more following dose reduction techniques: Automated exposure control, adjustment of the mA and/or kV according to patient size, or use of iterative reconstruction technique. FINDINGS: No fracture or malalignment. Vertebral height the maintained. Overall mild multilevel degenerative changes. Moderate left-sided neural foraminal narrowing C3-C4 and C4-C5. Imks-yq-nzhafddg left-sided foraminal narrowing elsewhere. Right-sided neural narrowing moderate to severe C3-4 and moderate C4-C5 Multilevel facet arthropathy notably upper cervical levels. No prevertebral soft tissue swelling. CT/CT cervical spine wo con IMPRESSION: NO CERVICAL SPINE FRACTURE NO HIGH-GRADE LEFT-SIDED NEURAL FORAMINAL NARROWING.. PLEASE NOTE EVALUATION DEGRADED DUE TO CT TECHNIQUE. Impression dictated by: James Sexton M.D. 01/15/2025 12:31 PM Dictation Location: [place] [address] Electronically authenticated by: [id number] Date: 01/15/2025 12:31
--- NOTE | 2025-01-15 11:33 | ED.GENADUL1 ---
HPI HPI - General Adult General Chief complaint: Neck Pain/Injury Stated complaint: NECK PAIN Time Seen by Provider: 01/15/25 11:26 Source: patient Mode of arrival: walk-in Limitations: no limitations History of Present Illness HPI narrative: 39-year-old male presented to the emergency department for chief complaint of left arm pain and numbness. Beginning today he experienced a numb feeling in his left arm mostly in the thumb and index finger and going up on the radial side of the forearm in the bicep area. He states about 6 months ago he was diagnosed with a mildly herniated disc but this is worse than that. He has not seen a specialist about his neck because the symptoms got better with management by his PCP. No injury. He is right-handed. Related Data Previous Rx's ?Medication ?Instructions ?Recorded acetaminophen 300 mg-codeine 30 mg 1 tab PO Q6H PRN pain 5 days #20 01/15/25 tablet tabs prednisone 10 mg tablet See Rx Instructions .Route 01/15/25 .COMPLEX #30 tabs Allergies Allergy/AdvReac Type Severity Reaction Status Date / Time penicillin G AdvReac Intermediate UNKOWN Verified 01/15/25 11:20 Opioid HPI Opioid Management Most Recent Opioid Data: Last Pain Scale 8 Today, 11:25 Review of Systems ROS Narrative A ten point review of systems is negative except as noted above. PFSH PFSH Social History Smoking status: Current every day smoker Little interest or pleasure in doing things: not at all Feeling down, depressed, or hopeless: not at all Exam Narrative Exam Narrative: Nurses note and vital signs reviewed and patient is not hypoxic. General:The patient appears well and in no apparent distress.Patient is resting comfortably on cart. Skin:Warm, dry, no pallor noted.There is no rash noted. Head:Normocephalic, atraumatic Eye: Normal conjunctiva, no drainage Ears, Nose, Mouth, and Throat: oral mucosa is moist. Nares patent. Cardiovascular:Regular Rate and Rhythm Respiratory:Patient is in no distress, no accessory muscle use, lungs are clear to auscultation, no wheezing, rales or rhonchi Back:non-tender. Neck has no masses or swelling has full range of motion GI: Soft and nontender Musculoskeletal: Hand grasp, bicep, tricep strength all intact in the left arm. Radial pulse 2+ Neurological:A&O, normal speech Psychiatric:Cooperative Constitutional Vital Signs, click to edit/add: Last Vital Signs Temp 97.6 F 01/15/25 11:20 Pulse 85 01/15/25 11:20 Resp 16 01/15/25 11:20 BP 143/94 H 01/15/25 11:20 Pulse Ox 98 01/15/25 11:20 O2 Del Method Room Air 01/15/25 11:20 Course Vital Signs Vital signs: Vital Signs Temperature 97.6 F 01/15/25 11:20 Pulse Rate 85 01/15/25 11:20 Respiratory Rate 16 01/15/25 11:20 Blood Pressure 143/94 H 01/15/25 11:20 Pulse Oximetry 98 01/15/25 11:20 Oxygen Delivery Method Room Air 01/15/25 11:20 Temperature 97.6 F 01/15/25 11:20 Pulse Rate 85 01/15/25 11:20 Respiratory Rate 16 01/15/25 11:20 Blood Pressure 143/94 H 01/15/25 11:20 Pulse Oximetry 98 01/15/25 11:20 Oxygen Delivery Method Room Air 01/15/25 11:20 Medical Decision Making MDM Narrative Medical decision making narrative: CT scan shows moderate foraminal narrowing which is consistent with his symptoms. He is provided prescription for prednisone and Tylenol 3 and will follow-up with his PCP. Treatment diagnosis and follow-up were discussed with the patient. Differential Diagnosis Differential Diagnosis: Degenerative disc disease, herniated disc, cervical radiculopathy Imaging Data CT C-spine: Radiologist's impression: ITS Impressions Cervical Spine CT 01/15/25 11:33 IMPRESSION: NO CERVICAL SPINE FRACTURE NO HIGH-GRADE LEFT-SIDED NEURAL FORAMINAL NARROWING.. PLEASE NOTE EVALUATION DEGRADED DUE TO CT TECHNIQUE. Impression dictated by: James Sexton M.D. 01/15/2025 12:31 PM Dictation Location: [place] [address] Electronically authenticated by: [id number] Y Date: 01/15/2025 12:31 Discharge Plan Discharge Chief Complaint: Neck Pain/Injury Clinical Impression: Cervical radiculopathy Patient Disposition: Home, Self-Care Time of Disposition Decision: 12:41 Condition: Good Mode of Transportation: Private Vehicle Prescriptions / Home Meds: New acetaminophen-codeine 300-30 mg tablet 1 tab PO Q6H PRN (Reason: pain) 5 Days Qty: 20 0RF prednisone 10 mg tablet See Rx Instructions .ROUTE .COMPLEX Qty: 30 0RF Rx Instructions: 4 by mouth daily for three days then 3 by mouth daily for three days then 2 by mouth daily for three days then 1 by mouth daily for three days Print Language: [place] Rican Instructions: Cervical Radiculopathy (ED) Referrals: Bakari Barclay MD [Primary Care Provider, Family Practice] - 1 week
== END 2025-01-15 12:47 | disposition home or self-care (01) ==
PROVIDERS: Emergency Provider Emergency Medicine; PCP Family Medicine
DX: M54.12 Radiculopathy, cervical region (principal); F17.200 Nicotine dependence, unspecified, uncomplicated
CPT/HCPCS: 72125; 76376; 99284

== ENCOUNTER 2025-02-25 11:15 | Outpatient (OUT) | payer OTHER, SELFPAY ==
--- OUTSIDE RECORDS SUMMARY | 2025-02-21 03:50 | XMS_ITS ---
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 Name Role Phone RishiCarlton rainey Primary Care Provider REASON FOR VISIT orbit order Encounters Encounter Location Date Provider Diagnosis [place] [address] [place] [address] 02/21/2025 Carlton Rishibrigid Encounter for other preprocedural examination Z01.818 Assessments Encounter Date Diagnosis (ICD Code) Assessment Notes Treatment Notes Treatment Clinical Notes Section Notes 02/21/2025 Encounter for other preprocedura l examination (ICD-10 - Z01.818) Plan Of Treatment Pending Test Test Name Order Date XR Orbits Complete 02/21/2025 Progress Notes * Christiano MCALLISTER JrDOB: [birth year] (39 yo M)Acc No.[id number]:02/21/2025 Patient:?Christiano MCALLISTER Jr :1985???Age:39 Y???Sex:MalePhone:[phone] [facility] [address] Subjective: * Chief Complaints: * O rbit order * Medical History: * Surgical History: * Hospitalization/Major Diagno stic Procedure: * Medications: Objective: * Vitals: * Physical Examination: ??? Assessment: * Assessment: 1.?Encounter for other preprocedural examination - Z01.818 (Primary)??? Plan: * Treatment: ?Imaging: XR Orbits Complete * Procedure Codes: * true * Date:?Generated for Printing/Faxing/eTransmitting on:?02/25/2025 11:17 AM EST
--- NOTE | 2025-02-25 11:17 | XR_ITS ---
The [address] [address] Patient Name: SOL MCALLISTER MRN: [id number] date: 1985 Sex: M Assigned Patient Location: RAD Current Patient Location: [facility] Accession/Order Number: [id number] Exam Date: 02/25/2025 11:22 Report Date: 02/25/2025 11:32 At the request of: LUISA SALINAS MD Procedure: XR foreign body eye CHERYL ORBITS FOR FOREIGN BODY - 2 views COMPARISON: None CLINICAL DATA: MRI screening for foreign body AP and lateral views were obtained. No radiopaque orbital foreign bodies are noted. The paranasal sinuses, as visualized are clear. XR/XR foreign body eye CHERYL IMPRESSION: NO EVIDENCE OF ORBITAL RADIOPAQUE FOREIGN BODY Impression dictated by: Lynnette Wooten M.D. 02/25/2025 11:32 AM Dictation Location: [place] [address] Electronically authenticated by: [id number] Y Date: 02/25/2025 11:32
--- NOTE | 2025-02-25 11:18 | MR_ITS ---
The [address] [address] Patient Name: SOL MCALLISTER MRN: [id number] date: 1985 Sex: M Assigned Patient Location: [facility] Current Patient Location: [facility] Accession/Order Number: [id number] Exam Date: 02/25/2025 11:45 Report Date: 02/25/2025 17:02 At the request of: LUISA SALINAS MD Procedure: MR head/brain wo con MR head/brain wo con 02/25/2025 2:02 PM SIGN AND SYMPTOMS: Left Arm Weakness, left neck pain, left upper extremity numbness PROTOCOL: Multiplanar multisequence MR images of the brain without IV contrast COMPARISON: None. FINDINGS: Extra axial spaces: Age appropriate. Hemorrhage: None. Ventricular system: Within normal limits. Basal cisterns: Within normal limits and not effaced. Cerebral parenchyma: T2 and T2 FLAIR hyperintense foci are noted in the periventricular and subcortical white matter. These are nonspecific. Midline shift: None.. Cerebellum: Within normal limits. Brainstem: Within normal limits. OTHER: Calvarium: Normal marrow signal. Vascular system: Satisfactory flow voids within the anterior and posterior circulation. Visualized Paranasal sinuses: Polypoid mucosal thickening is noted in the right sphenoid sinus. Polypoid mucosal thickening is noted in the left maxillary sinus. Visualized Orbits: Within normal limits. Visualized upper cervical spine: Within normal limits. Sella and skull base: Within normal limits. MR/MR head/brain wo con IMPRESSION: No acute intracranial pathology. There are a few punctate nonspecific foci of T2 and FLAIR hyperintense signal. Impression dictated by: Rambo Loving M.D. 02/25/2025 5:02 PM Dictation Location: [place] [address] Electronically authenticated by: [id number] Y Date: 02/25/2025 17:02
--- NOTE | 2025-02-25 11:18 | MR_ITS ---
The [address] [address] Patient Name: SOL MCALLISTER MRN: [id number] date: 1985 Sex: M Assigned Patient Location: [facility] Current Patient Location: [facility] Accession/Order Number: [id number] Exam Date: 02/25/2025 11:45 Report Date: 02/25/2025 17:07 At the request of: LUISA SALINAS MD Procedure: MR cervical spine wo con MR cervical spine wo con 02/25/2025 2:02 PM SIGNS AND SYMPTOMS: ^Left Arm Weakness PROTOCOL: Multiplanar multisequence MR images of the cervical spine without IV contrast COMPARISON: None. FINDINGS: The bones of the cervical spine are in anatomic alignment. There is preservation of vertebral body heights. There is mild intervertebral disc height loss at C4-C5, C5-C6, and C6-C7. The marrow signal is within normal limits. The cord is normal in signal. No epidural or paraspinous fluid collection is appreciated. The visualized paraspinous soft tissues are within normal limits. The prevertebral soft tissues are within normal limits. At C2-C3: There is operative joint spurring with facet hypertrophy. There is moderate to severe left and mild right neural foraminal narrowing with no significant spinal canal narrowing. At C3-C4: There is a broad-based disc bulge with facet hypertrophy and uncovertebral joint spurring. There is severe bilateral neural foraminal narrowing with mild spinal canal narrowing. At C4-C5: There is a broad-based disc bulge with facet hypertrophy and uncovertebral joint spurring. There is moderate to severe bilateral neural foraminal narrowing with moderate spinal canal narrowing. At C5-C6: There is a broad-based disc bulge with facet hypertrophy and uncovertebral joint spurring. There is moderate bilateral neural foraminal narrowing with moderate spinal canal narrowing. At C6-C7: There is a broad-based disc bulge without to joint spurring and facet hypertrophy. There is moderate bilateral neural foraminal narrowing with mild spinal canal narrowing. At C7-T1: There is a broad-based disc bulge without joint spurring and facet hypertrophy. There is moderate bilateral neural foraminal narrowing. There is mild spinal canal narrowing. MR/MR cervical spine wo con IMPRESSION: No cord compression or cord signal abnormality. Multilevel degenerative changes noted contributing to spinal canal and neural foraminal narrowing throughout the cervical spine as described above. Impression dictated by: Rambo Loving M.D. 02/25/2025 5:07 PM Dictation Location: [place] [address] Electronically authenticated by: [id number] Y Date: 02/25/2025 17:07
--- OUTSIDE RECORDS SUMMARY | 2025-02-25 11:18 | XMS_ITS | Clinical Summary ---
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
--- OUTSIDE RECORDS SUMMARY | 2025-02-25 11:18 | XMS_ITS | Clinical Summary ---
Author Organization [employer] [facility] tem Address [id number] [address] 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 Operator Name Role Phone Bakari Barclay MD Primary Care Provider [phone] Allergies Active AllergyReactionsCriticalityNoted VnyvVhkufxszMnoweoorove48/11/2019 Medications No known medications Immunizations ImmunizationAdministration DatesNext SljIedf31/02/2023 Social History Tobacco UseTypesPacks/DayYears UsedDateSmoking Tobacco: Every DayCigarettes Smokeless Tobacco: NeverAlcohol UseStandard Drinks/WeekCommentsNot Currently0 (1 standard drink = 0.6 oz pure alcohol)ChildcareAnswerDate RecordedChildcare Iylfoeh9909/16/2018EmploymentAnswerDate GkvijsynQnrmaznredFtstqje31/12/2019Purpose - LifeAnswerDate RecordedPurpose and direction in kfhxRisntad52/11/2021ex and Gender InformationValueDate RecordedSex Assigned at BirthNot on fileLegal Sex Male11/10/2014 12:03 PM EDTGender IdentityNot on fileSexual OrientationNot on file Last Filed Vital Signs Vital SignReadingTime TakenCommentsBlood Esyxcycq047/7710 9:29 AM EDT Gogjr2746 8:41 AM JCCSmaflarlvkg35.9 ??C (98.4 ??F)01/06/2023 8:41 AM EDTRespiratory Pins9167 8:41 AM EDTOxygen Fgntrcgpph39%01/06/2023 8:41 AM EDTInhaled Oxygen Concentration--Ssluuf605.8 kg (242 lb)01/06/2023 8:41 AM ZEETynecs242.8 cm (5' 10 )01/06/2023 8:41 AM EDTBody Mass Index34.7201/06/2023 8:41 AM EDT Plan of Treatment Health MaintenanceDue DateLast DoneCommentsDepression Zgngrzcsn05/21/1996Tobacco Zieqwxkub63/21/1996Adult BMI Odnfzzbdt27/05/2022Influenza Vaccine 12/06/2024DTaP,Tdap and Td Vaccines (3 - Td or Tdap), 02/15/2012 [employer] [place] [address] Care Teams Team MemberRelationshipSpecialtyStart DateEnd Bakari Barclay MD PCP - GeneralFamily Sqzdvtsw62/11/19
--- OUTSIDE RECORDS SUMMARY | 2025-02-25 11:18 | XMS_ITS | Patient Health Record ---
Author Organization The [facility] in [place] Address [address] [place] [address] Care Team Providers Care Servicer Coin Machines Name Role Phone Carlton Barclay Primary Care Provider [phone] Allergies Allergen (clinical drug ingredient) Drug/Non Drug Allergy documented on EMR Reaction Allergy Type Onset Date Status Penicillinchildhood allergyDrug AllergyActive Results Component Value Reference Range Notes CT cervical spine wo con Reviewed date:01/17/2025 12:39:32 PM Interpretation: Performing Lab: Notes/Report: Source Facility: [place] [address] CT Scan Report Signed Patient: SOL MCALLISTER MR#: [id number] : 1985 Acct:[id number] Age/Sex: 39 / M ADM Date: 01/15/25 Loc: ER Attending Dr: Ordering Physician: Shona Ha M.D. Date of Service: 01/15/25 Procedure(s): CT cervical spine wo con Accession Number(s): [id number] cc: Bakari Barclay M.D. [address] [address] Patient Name: SOL MCALLISTER MRN: [id number] date: 1985 Sex: M Assigned Patient Location: ER Current Patient Location: ER Accession/Order Number: [id number] Exam Date: 01/15/2025 11:45 Report Date: 01/15/2025 12:31 At the request of: SHONA HA MD Procedure: CT cervical spine wo con CT CERVICAL SPINE WITHOUT CONTRAST WITH 3D RECONSTRUCTIONS: CLINICAL HISTORY: left arm pain/numbness COMPARISON: 06/24/2018 TECHNIQUE: Spiral axial unenhanced images were obtained through the cervical spine. Sagittal, coronal and 3D volume-rendered reconstructions were also reviewed. This CT exam was performed using one or more following dose reduction techniques: Automated exposure control, adjustment of the mA and/or kV according to patient size, or use of iterative reconstruction technique. FINDINGS: No fracture or malalignment. Vertebral height the maintained. Overall mild multilevel degenerative changes. Moderate left-sided neural foraminal narrowing C3-C4 and C4-C5. Czgw-jm-zonjwogq left-sided foraminal narrowing elsewhere. Right-sided neural narrowing moderate to severe C3-4 and moderate C4-C5 Multilevel facet arthropathy notably upper cervical levels. No prevertebral soft tissue swelling. CT/CT cervical spine wo con IMPRESSION: NO CERVICAL SPINE FRACTURE NO HIGH-GRADE LEFT-SIDED NEURAL FORAMINAL NARROWING.. PLEASE NOTE EVALUATION DEGRADED DUE TO CT TECHNIQUE. Impression dictated by: James Sexton M.D. 01/15/2025 12:31 PM Dictation Location: [place] [address] Electronically authenticated by: [id number] Y Date: 01/15/2025 12:31 Dictated By: James Sexton M.D. 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: Reason For Referral No Information Medications Medication SIG (Take, Route, Frequency, Duration) Notes Start Date End Date Status Acetaminophen-Codeine 300-30 MG 1 tablet as needed Orally every 6 hrs; Duration: 7 days M54.12 5Active Social History Tobacco Use: Social History Observation Description Date Details (start date - stop date) Current Smoker 04/07/1998 - NA Tobacco Control (Standard) Question Answer Notes Tobacco use: Current smoker When did you start smoking?04/07/1998How often do you smoke cigarettes?Every day How many cigarettes a day do you smoke?11-20Additional Findings: Tobacco user Moderate cigarette smoker (10-19 cigs/day)AUDIT-C (Standard) Question Answer Notes Did you have a drink containing alcohol in the p ast year? No Tqwkdp0QqpawlphrdktqjVpfblktb Problems Problem Type SNOMED Code ICD Code Onset Dates Problem Status W/U Status Risk Notes Problem Cervical radiculopathy (80253199) Cervica l radiculopathy (M54.12) ActiveconfirmedProblemDisorder of musculoskeletal system (822341)Left arm weakness (R29.898)Activeconfirmed Vital Signs Blood pressure diastolic 78 mm Hg 01/17/2025 Qnwegl77 in01/17/2025lood pressure dtvlsrek598 mm Hg01/17/20259984Pouhmc271.8 lbs 01/17/2025BMI38.13 kg/m201/17/2025 Encounters Encounter Location Date Provider Diagnosis [facility] [address] [place] [address] 01/17/2025 Carlton Hoy Left arm weakness R29.898 [facility] [address] [place] [address] 01/17/2025 Carlton Hoy [facility] [place] [address] 01/21/2025[facility] [place] [address]/17/2025Doug yEtnounter for other preprocedural examination Z01.818 Assessments Encounter Date Diagnosis (ICD Code) Assessment Notes Treatment Notes Treatment Clinical Notes Section Notes 01/17/2025 Left arm weakness (ICD-10 - R29. 898) CT with sever narrowing opn the R -0 mod on left =- symtosm o left- needs MRI brain since Ct finding not consistent iwht sym[toms104/23/2024Encounter for other preprocedural examination (ICD-10 - Z01.818)01/17/2025OtherRecommended to rest and use a heating pad on the area. Take NSAIDs for pain as needed Plan Of Treatment Pending Test Test Name Order Date XR Orbits Complete 02/21/2025 MRI BRAIN WO CON 01/17/2025 MRI CSPINE WO CON 01/17/2025 Insurance Providers Payer Name Payer Address Payer Phone Subscriber Number Group Number Insured Name Patient Relationship to Insured Coverage Start Date Coverage End Date MMO [employer] [address] [place] [address] [id number] Yoan Mcallister - patient is the insured Medical (General) History Surgical History Surgery Date(Month/Year) Vasectomy 2016 [place] teeth Hospitalization History Reason Date(Month/Year) denies
--- OUTSIDE RECORDS SUMMARY | 2025-02-25 11:24 | XMS_ITS | CCD ---
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 Name Role Phone BRAD Mcgrath, DR MORAN Primary Care Unavailable WILLIAN ., CINDY Admitting Unavailable WILLIAN ., CINDY Attending Unavailable VLADIMIR ., MICHI Consulting Unavailable MARYAM DURAND Consulting Unavailable BRAD Mcgrath, DR MORAN Admitting Unavailable BRAD ., DR MORAN Attending Unavailable BRAD Mcgrath, DR MORAN Primary Care Unavailable BRAD Mcgrath, DR MORAN Consulting Unavailable TONI, DR BILL [place] Consulting Unavailable Luisa Barclay Primary Care Physician Oseas Arroyo Attending Unavailable Oseas Arroyo Attending Unavailable Allergies Allergy ClassificationReported Allergen(s)Allergy TypeDate of OnsetReaction(s) Facility (4 sources)Penicillin; Translations: [penicillin]Drug AllergyThe [facility] Medications Current Medications MedicationDrug Class(es)DatesSig (Normalized)Sig (Original)methocarbamol 500 mg oral tablet (1 source)Muscle RelaxantStart: 02-15-2024 End: 39-67-0665lovs 1 tablet by mouth three times dailyRobaxin 500 mg Tab 500 mg = 1 tab(s), Oral, TID, X 3 day(s), # 9 tab(s), Refills(s) 0, Pharmacy: [facility], 180, cm, 02/15/24 19:43:00 EST, Height/Length Dosing, 120, kg, 02/15/24 19:43:00 EST, Weight Dosing Start Date: 02/15/24 Stop Date: 02/18/24 Status: OrderedpredniSONE 50 mg oral tablet (1 source)Start: 02-15-2024 End: 42-78-8144mkov 1 tablet by mouth once dailypredniSONE 50 mg Tab 50 mg = 1 tab(s), Oral, Daily, X 5 day(s), # 5 tab(s), Refills(s) 0, Pharmacy:[facility], 180, cm, 02/15/24 19:43:00 EST, Height/Length Dosing, 120, kg, 02/14/2419:43:00 EST, Weight Dosing Start Date: 02/15/24 Stop Date: 02/20/24 Status: Ordered Problems Active Problems Problem ClassificationProblemDateDocumented DateEpisodic/ChronicOther nervous system disorders (1 source)Paresthesia; Translations: [Paresthesia of skin]Onset: 02-15-2024 EpisodicSpondylosis; intervertebral disc disorders; other back problems (1 source)Cervical radiculopathy; Translations: [Radiculopathy, cervical region] Onset: 36-48-7105BngvpcjxHgyqgtdut-related disorders (1 source)Nicotine dependence, cigarettes, uncomplicated; Translations: [NICOTINE DEPEND CIGARETTES UNCOMP]Onset: 68-35-5960Rbzasyh Past or Other Problems Problem ClassificationProblemDateDocumented DateEpisodic/ChronicNausea and vomiting (4 sources)Nausea with vomiting, unspecified; Translations: [NAUSEA WITH VOMITING UNSPECIFIED]Onset: 48-22-7214ZtkxufutGxptxpnq codes; unclassified (4 sources)Localized edema; Translations: [LOCALIZED EDEMA]Onset: 04-15-2022 Episodic Results Test NameValueInterpretationReference RangeFacilityCT Head or Brain w/o Contrast on 57-28-6050SC Head or Brain w/o ContrastExam Date/Time: 02/15/2024 20:54 EST Reason for Exam: [...] John Lopez M.D. Transcribed by: LEON Technologist: [facility] HospitalCT Spine Cervical w/o Contraston [id number] Spine Cervical w/o ContrastExam Date/Time: 02/15/2024 20:54 EST Reason for Exam: [...] John Lopez M.D. Transcribed by: LEON Technologist: [facility] HospitalCT Spine Thoracic w/o Contraston [id number] Spine Thoracic w/o ContrastExam Date/Time: 02/15/2024 20:54 EST Reason for Exam: [...] John Lopez M.D. Transcribed by: LEON Technologist: [facility] HospitalXR Chest Single Viewon [id number] Chest Single ViewExam Date/Time: 02/15/2024 21:05 EST Reason for Exam: [...] Ka,r in mGy = na DAP = naNormalMiddletown HospitalBMPon 64-99-0148Jwyiw gap [Moles/Vol]12 mmol/LNormal6-16Middletown HospitalComment on above:Performed By: #### [id number] #### [facility] [address], [place] [address]Wlbfirj [Mass/Vol]9.1 mg/dLNormal8.9-11.1FSelect Medical Specialty Hospital - AkronComment on above:Performed By: #### [id number] #### [facility] [address], [place] [address]Cbzttqwz [Moles/Vol]104 mmol/XWucguf154-690HifcacMiddletown HospitalComment on above:Performed By: #### [id number] #### [facility] [address], [place] [address]YA0 [Moles/Vol]26 mmol/LFdoeil65-30VnvwajMiddletown Hospital Comment on above:Performed By: #### [id number] #### [facility] [address], [place] [address]Luqlnefgrx [Mass/Vol]0.9 mg/dLNormal0.5-1.3FSelect Medical Specialty Hospital - AkronComment on above:Performed By: #### [id number] #### [facility] [address], [place] [address]Jwdqlvj [Mass/Vol]131 mg/iKYkwvim88-594PgfnbpMiddletown HospitalComment on above:Performed By: #### [id number] #### [facility] [address], [place] [address]Ptshjjgcn [Moles/Vol]3.6 mmol/LNormal3.5-5.3FSelect Medical Specialty Hospital - AkronComment on above:Performed By: #### [id number] #### [facility] [address] [place] [address]Lsdaqy [Moles/Vol]138 mmol/ZWmtjtn202-479QmdnxaMiddletown HospitalComment on above:Performed By: #### [id number] #### [facility] [address] [place] [address]Zyjj nitrogen [Mass/Vol]13 mg/dLNormal5-21Middletown HospitalComment on above:Performed By: #### [id number] #### [facility] [address] [place] [address]Pxfr nitrogen/Creatinine [Mass ratio]14 No ZhqlwHdolun84-43 [facility]own HospitalComment on above:Performed By: #### [id number] #### [facility] [address] [place] [address]FEQ w/ Auto Diffon 57-95-6816Nplavunzw/100 WBC (Bld)1.0 %Normal 0.0-2.0Middletown HospitalComment on above:Performed By: #### [id number] #### [facility] [address] [place] [address]Bceqopzvi/Leukocytes Auto (Bld) [Pure # fraction]0.1 E9/LNormal 0.0-0.2FSelect Medical Specialty Hospital - AkronComment on above:Performed By: #### [id number] #### [facility] [address] [place] [address]Kzvgblfliiv (Bld) [#/Vol]0.1 E9/LNormal0.0-0.5FSelect Medical Specialty Hospital - AkronComment on above:Performed By: #### [id number] #### [facility] [address] [place] [address]Xtdmkakdfvt/100 WBC (Bld)1.1 %Normal0.0-8.0Middletown HospitalComment on above:Performed By: #### [id number] #### [facility] [address], [place] [address]Ovwdyvabnmj distribution width (RBC) [Ratio]13.6 %Normal 10.9-14.2FSelect Medical Specialty Hospital - AkronComment on above:Performed By: #### [id number] #### [facility] [address] [place] [address]Zsngeksguy (Bld) [Volume fraction]44.6 %Ruikdw11.7-49.0Middletown HospitalComment on above:Performed By: #### [id number] #### [facility] [address] [place] [address]Qsvelhgcub (Bld) [Mass/Vol]15.6 g/fCHqloop58.5-17.5FSelect Medical Specialty Hospital - AkronComment on above:Performed By: #### [id number] #### [facility] [address] [place] [address]Lftgogdfxkh (Bld) [#/Vol]2.0 E9/LNormal1.0-4.0Middletown HospitalComment on above:Performed By: #### [id number] #### [facility] [address] [place] [address]Sdqdgauylet/100 WBC (Bld)25.7 %Fdqnfn37.0-50.0Middletown HospitalComment on above:Performed By: #### [id number] #### [facility] [address] [place] [address]EJO (RBC) [Entitic mass]29.0 rwCqtmbu25.0-34.0Middletown HospitalComment on above:Performed By: #### [id number] #### [facility] [address] [place] [address]15[address]DGBZ (RBC) [Mass/Vol]34.9 g/oZXjppkt51.4-36.0M[facility]letown HospitalComment on above:Performed By: #### [id number] #### [facility] [address] [place] [address]CAV (RBC) [Entitic vol]83.1 eKFoifhx80.0-100.0M[facility]letown HospitalComment on above:Performed By: #### [id number] #### [facility] [address] [place] [address]Fmgbaoglm (Bld) [#/Vol]0.6 E9/LNormal0.2-1.0M[facility]letown HospitalComment on above:Performed By: #### [id number] #### [facility] [address] [place] [address]Kmdtalpybcs (Bld) [#/Vol]5.1 E9/LNormal2.0-7.5FSelect Medical Specialty Hospital - AkronComment on above:Performed By: #### [id number] #### [facility] [address] [place] [address]Hrjlogqcvdb/100 WBC (Bld)64.1 %Jiqnym65.0-75.0M[facility]letown HospitalComment on above:Performed By: #### [id number] #### [facility] [address] [place] [address]Hhyoocit926.0 E9/SOlfsfg412.0-500.0[facility] Comment on above:Performed By: #### [id number] #### [facility] [address] [place] [address]Eojgumia mean volume (Bld) [Entitic vol]7.4 fLNormal6.4-10.8 [facility]own HospitalComment on above:Performed By: #### [id number] #### [facility] [address] [place] [address]NSG (Bld) [#/Vol]5.4 E12/LNormal4.3-5.9M[facility]letown HospitalComment on above:Performed By: #### [id number] #### [facility] [address] [place] [address]RKD corrected for nucl RBC Auto (Bld) [#/Vol]8.0 E9/LNormal 4.0-11.0Fisher [facility]inai Hospital Of BaltimoreComment on above:Performed By: #### [id number] #### [facility] [address] [place], [place] [address]CYOMIUYJLRwjprmz By: SYSTEM SYSTEM on 46-01-2584Tgpum gap [Moles/Vol]12 mmol/LNormal6 - 16 mEq/LRemisol ChemCalcium [Mass/Vol]9.1 mg/dL Normal8.9 - 11.1 mg/dLRemisol ChemChloride [Moles/Vol]104 mmol/HNlecut021 - 111 mmol/LRemisol ChemCO2 [Moles/Vol]26 mmol/MBogvah51 - 31 mmol/LRemisol Chem Creatinine [Mass/Vol]0.9 mg/dLNormal0.5 - 1.3 mg/dLRemisol RednbREC405 mL/min/1.73 n5Mgjrfq>=59mL/min/1.73 k2Edtiman ChemGlucose [Mass/Vol]131 mg/dL Vieypo11 - 199 mg/dLRemisol ChemPotassium [Moles/Vol]3.6 mmol/LNormal3.5 - 5.3 mmol/LRemisol ChemSodium [Moles/Vol]138 mmol/QIpjhpo506 - 145 mmol/LRemisol Chem Troponin HS2.80 pg/mLLow15.90 - 38.40 pg/mLRemisol ChemComment on above: Interpretive Data: The 95% CI (Confidence Interval) PPV (Positive Predictive Value) for myocardial infarction in females is 38 pg/mL, in males 51 pg/mL. The results should be used in conjunction withclinical conditions of myocardial infarction. (Access High Sensitivity Troponin I Instructions For Use, Ehsan Hazlet, November 2017)Urea nitrogen [Mass/Vol]13 mg/dLNormal5 - 21 mg/dLRemisol ChemUrea nitrogen/Creatinine [Mass ratio]14 mg/gdXpnxch45 - 20Remisol ChemCOAGULATION Ordered By: Alicia Richey on 46-18-7961xOFT Coag (PPP) [Time]31.3 tBiqhng59.1 - 36.5 second(s)[facility] Auto CoagComment on above:Interpretive Data: Parameter 15 days - 4 weeks 1 - 5 months 6 - 11 months 1 - 5 years 6 - 10 years 11 - 17 years PTT Mean: 35.4 (27.6-45.6) Mean: 33.5 (24.8-40.7) Mean: 32.4 (25.1-40.7) Mean: 31.6 (24.0-39.2) Mean: 31.6 (26.9-38.7) Mean: 31.0 (24.6-38.4) Pediatric Reference ranges were obtained from a study by alonso Landaverde alRamila prepared from 1437 samples obtained at 7 different centers using the same coagulation reagent and instrumentation as [facility]. Currently there are no coagulation studies available worldwide for children to 14 days, andno normal ranges. Heparin therapeutic range (represented by Anti-Factor Xa activity of 0.2 - 0.4 U/mL) corresponds to PTT of 56.6 - 109.0 sec.INR Coag (PPP) [Relative time]0.99 {INR}Invalid Interpretation CodePURCELL MUNICIPAL [facility] Auto CoagComment on above:Interpretive Data: INR results are specifically intended to assess patients stabilized on long-term Anticoagulation therapy suggested INR s Less Intensive Anticoagulation 2.0 3.0 Conventional Range 3.0 4.5PT Coag (PPP) [Time]11.1 sNormal9.4 - 12.5 second(s) [facility] Auto CoagComment on above:Interpretive Data: 15 days - 4 weeks 1 - 5 months 6 -11 months 1 5 years 6 10 years 11 -17 years Mean: 11.2 (9.5 12.6) Mean: 11.0 (9.7 12.8) Mean: 11.0 (9.8 13.0) Mean: 11.3 (9.9 13.4) Mean: 11.7 (10.0 14.6) Mean: 11.8 (10.0 - 14.1) Pediatric Reference ranges were obtained from a study by doug Landaverde prepared from 1437 samples obtained at 7 different centers using the same coagulation reagent and instrumentation as [facility]. Currently there are no coagulation studies available worldwide for children to 14 days, andno normal ranges.ED Clinical Summaryon [id number] Clinical SummaryED Clinical Summary [address] [id number] ED Clinical Summary Person Information Name: CHRISTIANO MCALLISTER JR [place] Age: 38 Years : 1985 Sex: Male Language: Tajik PCP: Luisa Barclay MD Marital Status: Visit Id: Visit Reason: Testicular pain; Neck [...] 02/15/2024 23:08:04 02/15/2024 23:08:04 02/15/2024 23:08:04 ADDRESS: [facility] [address] [place] [id number] PHYS DOC NOTES: MEDICAL INFORMATION: Prescriptions Given: New Medications [facility], [address] [place], [place] [id number], [phone] methocarbamol (Robaxin 500 mg Tab) 1 Tablets By Mouth 3 times a day for 3 Days. Refills: 0. predniSONE (predniSONE 50 mg Tab) 1 Tablets By Mouth every day for 5 Days. Refills: 0. PATIENT EDUCATION INFORMATION: Instructions: Paresthesia, Itkr-mx-Jutq; Cervical Radiculopathy, Jgzs-tm-Jnyv Follow up: With: [facility]: [facility] [address] [place] [address] Business (1) In 3 days 02/18/2024 Comments: Take the steroids once daily and to you have completed the course. You can use the muscle relaxer every 8 hours as needed for muscle spasm. Please follow-up with your primary care doctor for further evaluation management. Please return to the ED for any new or worsening symptoms. With: Address: When: Luisa Barclay [facility] [facility] [place], [place] [address] Business (1) In 3 days DIAGNOSIS: Cervical radiculopathy; ParesthesiaNormalFisher Merrill Medical CenterED Note-Physicianon [id number] Note-PhysicianED Note-Physician Basic Information Time Seen: Oseas Arroyo DO 02/15/2024 19:36 Chief Complaint pt. states numbness to L hand started two fridays ago and it has since spread up his L arm, face, and into leg. also intermittent L testicle pain. states yesterday he had neck/shoulder pain that wentup his neck to his skull. History of [...] not had pain. Patient also states that hewas working on a recliner when the numbness [...] and Complexity of Problems Differential Diagnosis: [] [facility] Data External documents reviewed: [] My EKG [...] further evaluation management. He is to return tothe ED for any new or worsening symptoms. Shared decision making: [] Code status: [] Assessment/Plan Cervical radiculopathy (M54.12: Radiculopathy, cervical region) Paresthesia (R20.2: Paresthesia of skin) Orders: methocarbamol, 500 mg = 1 tab(s), Oral, TID, X 3 day(s), # 9 tab(s), Refills(s) 0, Pharmacy: [facility], 180, cm, 02/15/24 19:43:00 EST, Height/Length Dosing, 120, kg, 02/15/24 19:43:00 EST, Weight Dosing methylPREDNISolone, 125 mg = 2 mL, Injection, IV Push, Once, Stop date 02/15/24 19:59:00 EST, STAT,Start date 02/15/24 19:59:00 EST, 02/15/24 19:59:00 EST predniSONE, 50 mg = 1 tab(s), Oral, Daily, X 5 day(s), # 5 tab(s), Refills(s) 0, Pharmacy: [facility], 180, cm, 02/15/24 19:43:00 EST, Height/Length Dosing, 120, kg, 02/15/24 19:43:00EST, Weight Dosing Basic Metabolic Panel CBC w/ [...] Daily Robaxin 500 mg (more content not included)...[facility] Comment on above:Result Comment: Electronically Signed By: Oseas Arroyo DO\.tiffanie\Date and Time Signed: 02/15/24 23:02 ESTED Patient Summaryon [id number] Patient SummaryED Patient Summary [place] [id number] Patient Discharge Instructions Person Information Name: CHRISTIANO MCALLISTER JR Age: 38 Years Arrival Date: 02/15/2024 19:30:31 Discharge Diagnosis: Cervical radiculopathy; Paresthesia Primary Care Physician: Luisa Barclay MD Provider Information Primary Provider: Oseas Arroyo DO Advanced Flight Operations Engineer:None The exam and treatment you received in the Emergency Department were for an urgent problem and are not intended as complete care. It is important that you follow up with a doctor, nurse practitioner,or physician???s bankruptcy assistant for ongoing care. If your symptoms become worse or you do not improve asexpected and you are unable to reach your usual health care provider, you should return to the Emergency Department. We are available 24 hours a day. CHRISTIANO MCALLISTER JR has been given the following list of patient education materials, prescriptionsand follow-up instructions: Follow-up Instructions: With: Address: When: Bill Carballo [facility], [address] [place] [address] Business (1) In 3 days 02/18/2024 Comments: Take the steroids once daily and to you have completed the course. You can use the muscle relaxer every 8 hours as needed for muscle spasm. Please follow-up with your primary care doctor for further evaluation management. Please return to the ED for any new or worsening symptoms. With: Address: When: Luisa Barclay [address] [facility], [facility] [place] [address] Business (1) In 3 days In the event that this physician does not participate in your insurance network, please consult with your insurance company to find a nearby participating provider. Patient Education Materials: Paresthesia, Wpru-jp-Jvwi; Cervical Radiculopathy, Hqtg-dv-Jyqd A MESSAGE TO ALL PATIENTS REGARDING OPIOIDS PRESCRIPTION OPIOIDS: WHAT YOU NEED TO KNOW Prescription opioids can be used to help relieve njcuxcpn-qc-rmaedb pain and are often prescribed following a [...] (this may include visitor (more content not included)...[facility] CenterHEMATOLOGYOrdered By: SYSTEM SYSTEM on 28-69-7514Fobmdflxb/100 WBC (Bld)1.0 %Normal0.0 - 2.0 %Remisol HemeBasophils/Leukocytes Auto (Bld) [Pure # fraction]0.1 E9/LNormal0.0 - 0.2 E9/LRemisol HemeEosinophils (Bld) [#/Vol]0.1 E9/LNormal0.0 - 0.5 E9/LRemisol HemeEosinophils/100 WBC (Bld)1.1 %Normal0.0 - 8.0 %Remisol HemeErythrocyte distribution width (RBC) [Ratio]13.6 %Rxcsiz47.9 - 14.2 %Remisol HemeHematocrit (Bld) [Volume fraction]44.6 %Jhvxdx62.7 - 49.0 % Remisol HemeHemoglobin (Bld) [Mass/Vol]15.6 g/mZRkvynt83.5 - 17.5 gm/dLRemisol HemeLymphocytes (Bld) [#/Vol]2.0 E9/LNormal1.0 - 4.0 E9/LRemisol Heme Lymphocytes/100 WBC (Bld)25.7 %Afmenn37.0 - 50.0 %Remisol HemeMCH (RBC) [Entitic mass]29.0 vnAtixur92.0 - 34.0 pgRemisol HemeMCHC (RBC) [Mass/Vol]34.9 g/dL Rtjldi06.4 - 36.0 gm/dLRemisol HemeMCV (RBC) [Entitic vol]83.1 hVKnnstk20.0 - 100.0 fLRemisol HemeMonocytes (Bld) [#/Vol]0.6 E9/LNormal0.2 - 1.0 E9/LRemisol HemeMonocytes/100 WBC (Bld)8.1 %Normal4.0 - 14.0 %Remisol HemeNeutrophils (Bld) [#/Vol]5.1 E9/LNormal2.0 - 7.5 E9/LRemisol HemeNeutrophils/100 WBC (Bld)64.1 % Phlnoj63.0 - 75.0 %Remisol XhslKbjfcaqs495.0 E9/XJnwsyt814.0 - 500.0 E9/LRemisol HemePlatelet mean volume (Bld) [Entitic vol]7.4 fLNormal6.4 - 10.8 fLRemisol HemeRBC (Bld) [#/Vol]5.4 E12/LNormal4.3 - 5.9 E12/LRemisol HemeWBC corrected for nucl RBC Auto (Bld) [#/Vol]8.0 E9/LNormal4.0 - 11.0 E9/LRemisol HemePT & PTTon 91-80-9216qTBF Coag (PPP) [Time]31.3 second(s)Prrwbo50.1-36.5Fisher [facility] Hospital Of BaltimoreComment on above:Result Comment: Parameter 15 days - 4 weeks 1 - [...] the same coagulation reagent and instrumentation as [facility]. Currently there are no coagulation studies available worldwide for children to 14 days, andno normal ranges. Heparin therapeutic range (represented by Anti-Factor Xa activity of 0.2 - 0.4 U/mL) corresponds to PTT of 56.6 - 109.0 sec.Performed By: #### [id number] #### [facility] [address], [place] [address]DOD Coag (PPP) [Relative time]0.99 {INR}Invalid Interpretation AndraMiddletown HospitalComment on above:Result Comment: INR results are specifically intended to assess patients stabilized on long-term Anticoagulation therapy suggested INR???s ???Less Intensive Anticoagulation??? 2.0 ??? 3.0 Conventional Range 3.0 ??? 4.5Performed By: #### [id number] #### [facility] [address], [place] [address]FY Coag (PPP) [Time]11.1 second(s)Normal9.4-12.5Fbrain Sinai Hospital Of BaltimoreComment on above:Result Comment: 15 days - 4 weeks 1 - [...] the same coagulation reagent and instrumentation as [facility]. Currently there are no coagulation studies available worldwide for children to 14 days, andno normal ranges.Performed By: #### [id number] #### [facility] [address], [place] [address]Ecuddcnz 0 Hr.on 70-13-3385Jocphxga HS2.80 pg/mLLow15.90-38.40 [facility] HospitalComment on above:Result Comment: The 95% CI (Confidence Interval) PPV (Positive Predictive Value) for myocardial infarction in females is 38 pg/mL, in males 51 pg/mL. The results should be used in conjunction with clinical conditions of myocardial infarction. (Access High Sensitivity Troponin I Instructions For Use, Ehsan Hazlet, November 2017)Performed By: #### [id number] #### [facility] [address], [place] [address]eVSWho 22-40-3714yQXS188 mL/min/1.73 u4Dbdekp>=59Fisher [facility] Hospital Of BaltimoreComment on above:Performed By: #### [id number] #### [facility] [address], [place] [address]RD SANDRA DOP LEG LTon [id number] SANDRA DOP LEG LTEXAMINATION: US SANDRA DOP LEG LT HISTORY: Localized edema ; left leg pain, redness COMPARISON: No relevant comparison available. FINDINGS: REGION: Left leg THROMBI: None. COMPRESSIBILITY: Normal compressibility. FLOW: Normal waveform and antegrade flow between 5 and 20 cm/s. OTHER: None. IMPRESSION: 1. No deep vein thrombus within the left lower extremity. Electronically authenticated by: BILL MUÑOZ Date: 2022-04-15 14:52NormalThSelect Medical Specialty [facility] AUTO DIFFon [id number] #0.0 103/ulNormal0.0-0.1Barber[facility] Citizens HospitalComment on above:Performed By: #### CBC #### [facility] [address] [place] [address] Dr. Bacilio KimBasophils/100 WBC (Bld)0.1 %Critically low0.2-2.0The [facility] HospitalComment on above:Performed By: #### CBC #### [facility] [address] [place] [address] Dr. Bacilio Ramos #0.0 103/ulNormal0.0-0.7The [facility] HospitalComment on above: Performed By: #### CBC #### [facility] [address] [place] [address] Dr. Bacilio Woodosinophils/100 WBC (Bld)0.0 %Critically low0.9-7.0The [facility] HospitalComment on above:Performed By: #### CBC #### [facility] [address] [place] [address] Dr. Bacilio Woodrythrocyte distribution width (RBC) [Ratio]12.5 %Sbvros65.0-15.0 The [facility] HospitalComment on above:Performed By: #### CBC #### [facility] [address] [place] [address] Dr. Bacilio KimHematocrit (Bld) [Volume fraction]43.3 %Tjmgyf04.0-54.0[facility] HospitalComment on above:Performed By: #### CBC #### [facility] [address] [place] [address] Dr. Bacilio KimHemoglobin (Bld) [Mass/Vol]16.1 g/fSYvytrl98.0-18.0The [facility] HospitalComment on above:Performed By: #### CBC #### [facility] [address] [place] [address] Dr. Bacilio Ray #0.04 10e3/ulCritically high0.00-0.03The [facility] Comment on above:Performed By: #### CBC #### [facility] [address] [place] [address] Dr. Bacilio Ray %0.3 %Normal0.0-0.5The [facility] HospitalComment on above: Performed By: #### CBC #### [facility] [address] [place] [address] Dr. Bacilio Huang #0.6 103/ulCritically low1.2-3.8The [facility] Comment on above:Performed By: #### CBC #### [facility] [address] [place] [address] Dr. Bacilio Carringtonhocytes/100 WBC (Bld)3.8 %Critically low20.5-60.0The [facility] HospitalComment on above:Performed By: #### CBC #### [facility] [address] [place] [address] Dr. Bacilio ContrerasUAL DIFF REQNONormalThe [facility] HospitalComment on above: Performed By: #### CBC #### [facility] [address] [place] [address] Dr. Bacilio Du (RBC) [Entitic mass]28.6 inHdqtft32.9-34.0The [facility] HospitalComment on above:Performed By: #### CBC #### [facility] [address] [place] [address] Dr. Bacilio Du (RBC) [Mass/Vol]37.2 g/dLCritically high29.9-35.2The [facility] HospitalComment on above:Performed By: #### CBC #### [facility] [address] [place] [address] Dr. Bacilio DuV (RBC) [Entitic vol]77.0 fLCritically low80.0-94.0The [facility] HospitalComment on above:Performed By: #### CBC #### [facility] [address] [address] [address] Bacilio Herzog #0.8 103/ulNormal0.3-0.8The [facility] HospitalComment on above:Performed By: #### CBC #### [facility] [address] [address] [address] Bacilio Colemanocytes/100 WBC (Bld)5.5 %Normal1.7-12.0The [facility] Comment on above:Performed By: #### CBC #### [facility] [address] [place] [address] Dr. Bacilio Conway #13.4 103/ulCritically high1.4-6.5The [facility] Comment on above:Performed By: #### CBC #### [facility] [address] [place] [address] Dr. Bacilio Ceballosutrophils/100 WBC (Bld)90.3 %Critically high43.0-75.0The [facility] HospitalComment on above:Performed By: #### CBC #### [facility] [address] [place] [address] Dr. Bacilio Parkslet mean volume (Bld) [Entitic vol]8.9 fLCritically low 9.5-13.5The [facility] HospitalComment on above:Performed By: #### CBC #### [facility] [address] [place] [address] Dr. Bacilio KimPLT170 103/xgWykhuw352-902Xol [facility] HospitalComment on above: Performed By: #### CBC #### [facility] [address] [place] [address] Dr. Bacilio KimRBC5.62 106/ulNormal4.70-6.10The [facility] HospitalComment on above:Performed By: #### CBC #### [facility] [address] [place], [place] [address] Dr. Bacilio KimWBC14.8 103/ulCritically high4.0-11.0[facility] HospitalComment on above:Performed By: #### CBC #### [facility] [address] [place] [address] Dr. Bacilio Friedman URINE PROFILEon 55-18-7267Pujknaryx Ql (U)SMALLAbnormal NEGATIVEBarberton Citizens HospitalComment on above:Performed By: #### RENNY UMICRO #### [facility] [address] [place] [address] Dr. Bacilio KimClarity (U)CLEARNormalCLEARBarberton Citizens HospitalComment on above: Performed By: #### RENNY UMICRO #### [facility] [address] [place] [address] Dr. Bacilio Lisalor (U)YELLOWNormalYELLOWBarberton Citizens HospitalComment on above: Performed By: #### RENNY UMICRO #### [facility] [address] [place] [address] Dr. Bacilio Garcia micrscopic examination will be performed if indicated. NormalBarberton Citizens HospitalComment on above:Performed By: #### RENNY UMICRO #### [facility] [address] [place] [address] Dr. Bacilio KimGlucose Ql (U)NegativeNormalNEGATIVEBarberton Citizens HospitalComment on above:Performed By: #### RENNY UMICRO #### [facility] [address] [place] [address] Dr. Bacilio KimHemoglobin Ql (U)MODERATEAbnormalNEGATIVEBarberton Citizens Hospital Comment on above:Performed By: #### RENNY UMICRO #### [facility] [address] [place] [address] Dr. Bacilio KimKetones Ql (U)15 mg/dlAbnormalNEGATIVEBarberton Citizens Hospital Comment on above:Performed By: #### RENNY UMICRO #### [facility] [address] [place] [address] Dr. Yilan ChangLEUKOCYTESNegativeNormalNEGATIVEBarberton Citizens HospitalComment on above:Performed By: #### KEI LAWSON #### [facility] [address] [place] [address] Dr. Bacilio Francotrdanita Ql (U)NegativeNormalNEGATIVEThe [facility] HospitalComment on above:Performed By: #### KEI LAWSON #### [facility] [address] [place] [address] Dr. Bacilio KimpH (U)5.5 [pH]Normal5-9The [facility] HospitalComment on above: Performed By: #### KEI LAWSON #### [facility] [address] [place] [address] Dr. Bacilio KimSPEC GRAVITY1.867Urtyay3.005-<=1.025The [facility] HospitalComment on above:Performed By: #### KEI LAWSON #### [facility] [address] [place] [address] Dr. Bacilio Weston PROTEINTRACENormalNEGATIVE/ TRACEThe [facility] HospitalComment on above:Performed By: #### KEI LAWSON #### [facility] [address] [place] [address] Dr. Bacilio Valles MICRO INDINDICATEDSuburban Community Hospital & Brent[facility] HospitalComment on above: Performed By: #### KEI LAWSON #### [facility] [address] [place] [address] Dr. Bacilio Anguiano Qn (U)1.0 {Mai'U}/dLNormal0.2 - 1.0The [facility] HospitalComment on above:Performed By: #### FRANCISCO LAWSONRO #### [facility] [address] [place] [address] Dr. Bacilio Cabezas A AND B Isauro 20-28-4209VRLYLMXRXFQNHMetroHealth Parma Medical CenterComment on above:Result Comment: Negative for Flu A protein angiten. Infection due to Flu A cannot be ruled out. FluA angiten in the sample may be below the detection limit of the test.Performed By: #### INFLUAB #### [facility] [address] [place] [address] Dr. Bacilio Menjivar [facility] on above: Result Comment: Negative for Flu B protein antigen. Infection due to Flu B cannot be ruled out. FluB antigen in the sample may be below the detection limit of the test.Performed By: #### INFLUAB #### [facility] [address] [place] [address] Dr. Bacilio Freire AGNegativeNormalNEGATIVE SEE COMMENTThe [facility] on above:Performed By: #### INFLUAB #### [facility] [address] [place] [address] Dr. Bacilio Mckeon AGNegativeNormalNEGATIVE SEE COMMENTThe [facility] on above:Performed By: #### INFLUAB #### [facility] [address] [place] [address] Dr. Bacilio Austin 14(COMP METB)on 99-20-0034Tybjobu [Mass/Vol]4.0 g/dLNormal 3.4-5.0[facility] on above:Performed By: #### CMP #### [facility] [address] [place] [address] Dr. Bacilio KimAlbumin/Globulin [Mass ratio]1.2 {ratio}NormalThe [facility] on above:Performed By: #### CMP #### [facility] [address] [place] [address] Dr. Bacilio Trejo [Catalytic activity/Vol]89 U/UElvsrl52-966Ytb [facility] on above:Performed By: #### CMP #### [facility] [address] [place] [address] Dr. Bacilio Balderas [Catalytic activity/Vol]29 U/ICexabb99-99Wzg [facility] on above:Performed By: #### CMP #### [facility] [address] [place] [address] Dr. Bacilio Arana gap [Moles/Vol]14.1 mmol/LNormalBarberton Citizens Hospital Comment on above:Performed By: #### CMP #### [facility] [address] [address] [address] Bacilio KimAST [Catalytic activity/Vol]24 U/BRupkpj54-76Oib [facility] HospitalComment on above:Performed By: #### CMP #### [facility] [address] [place] [address] Dr. Bacilio KimBilirubin [Mass/Vol]1.0 mg/dLNormal0.2-1.0The [facility] Comment on above:Performed By: #### CMP #### [facility] [address] [place] [address] Dr. Bacilio KimCalcium [Mass/Vol]9.0 mg/dLNormal8.5-10.1The [facility] Comment on above:Performed By: #### CMP #### [facility] [address] [place] [address] Dr. Bacilio KimChloride [Moles/Vol]99 mmol/TIbpiqu77-978Vrb [facility] Comment on above:Performed By: #### CMP #### [facility] [address] [place] [address] Dr. Bacilio KimCO2 [Moles/Vol]23.6 mmol/DOsubih20.0-32.0[facility] Comment on above:Performed By: #### CMP #### [facility] [address] [place] [address] Dr. Bacilio KimCreatinine [Mass/Vol]1.00 mg/dLNormal0.70-1.30The [facility] HospitalComment on above:Performed By: #### CMP #### [facility] [address] [place] [address] Dr. Bacilio WoodGFR-AF UGANDAN>60Normal>=60The [facility] HospitalComment on above:Performed By: #### CMP #### [facility] [address] [place] [address] Dr. Bacilio WoodGFR-NON AF UGANDAN>60Normal>=60The [facility] HospitalComment on above:Performed By: #### CMP #### [facility] [address] [place] [address] Dr. Bacilio KimGlobulin (S) [Mass/Vol]3.4 g/dLNormalThBarberton Citizens HospitalComment on above:Performed By: #### CMP #### [facility] [address] [place] [address] Dr. Bacilio KimGlucose [Mass/Vol]100 mg/aJAitwyk44-501Fqi [facility] Comment on above:Performed By: #### CMP #### [facility] [address] [place] [address] Dr. Bacilio KimPotassium [Moles/Vol]3.7 mmol/LNormal3.5-5.1The [facility] Comment on above:Performed By: #### CMP #### [facility] [address] [place] [address] Dr. Bacilio KimProtein [Mass/Vol]7.4 g/dLNormal6.4-8.2The [facility] Comment on above:Performed By: #### CMP #### [facility] [address] [place] [address] Dr. Bacilio KimSodium [Moles/Vol]133 mmol/LCritically brp466-874Hmr [facility] HospitalComment on above:Performed By: #### CMP #### [facility] [address] [place] [address] Dr. Bacilio KimUrea nitrogen [Mass/Vol]17.0 mg/dLNormal7.0-18.0The [facility] HospitalComment on above:Performed By: #### CMP #### [facility] [address] [place] [address] Dr. Bacilio Flanagan nitrogen/Creatinine [Mass ratio]17.0 mg/mgNormalThe [facility] HospitalComment on above:Performed By: #### CMP #### [facility] [address] [place] [address] Dr. Bacilio KimURINE MICROSCOPIC ONLYon 67-80-7928ABBTVAAETCMHRCiiwqrokQRKZ SEEN [facility] on above:Performed By: #### ERUR, UMICRO #### [facility] [address] [place] [address] Dr. Bacilio Ramirez identified Cx Nom (U)NOT INDICATEDNormalThUniversity Hospitals [facility] on above:Performed By: #### ERUR, UMICRO #### [facility] [address] [place] [address] Dr. Bacilio Freeman SEENNormalNONE SEENMercy Health St[facility] on above:Performed By: #### ERUR, UMICRO #### [facility] [address] [place] [address] Dr. Bacilio Sorenson LM Nom (Urine sed)NONE SEENNormalNONE SEENMercy Health St[facility] on above:Performed By: #### RENNY UMICRO #### [facility] [address] [place] [address] Dr. Bacilio Barbathelial cells LM Ql (Urine sed)RARENormalNONE SEEN /RAREThe [facility] HospitalCombeaumont hospital on above:Performed By: #### RENNY UMICRO #### [facility] [address] [place] [address] Dr. Bacilio KulkarniCOUSTRACEAbnormalNONE SEENMercy Health St. [facility] on above:Performed By: #### RENNY UMICRO #### [facility] [address] [place] [address] Dr. Bacilio KimQaknnEVO7-98Tfzmhdxx6-7KieMercy Health St. [facility] on above:Performed By: #### ERUR, UMICRO #### [facility] [address] [place] [address] Dr. Bacilio KimWBC0-2AbnormalNONE SEENMer[address] [facility] on above: Performed By: #### ERUR, UMICRO #### [facility] [address] [place] [address] Dr. Bacilio KimXR CHEST 2 Von [id number] CHEST 2 VEXAM: Chest x-ray HISTORY: . NAUSEA WITH VOMITING, UNSPECIFIED . COMPARISON: None. TECHNIQUE: Frontal and lateral chest FINDINGS: Heart and vascularity are unremarkable. Lungs are expanded and free of focal infiltrates. No acute bony abnormality is appreciated. IMPRESSION: No acute heart or lung disease identified. Electronically authenticated by: MARYAM DURAND Date: 2022-04-13 16:50[facility] Vital Signs Date TimeVital SignValuePerforming ZhiwejvybWypxlref98-78-7514 22:00-0500 Diastolic blood yljkfkoo18 mm[Hg]Kaylinn Dokken [address]11-10-2024 22:00-0500Heart rate76 /minKaylinn Dokken [address] [place], [place] 3732711-10-2024 22:00-0500Mean blood atysmbjb054 mm[Hg]Kaylinn Dokken [address] [place], [place] 3732711-10-2024 22:00-0500 Respiratory rate16 /minKaylinn Dokken [address] [place], [place] 5672111-10-2024 22:00-8824OjP2% (BldA) [Mass fraction]96 %Kaylinn Dokken [address]11-10-2024 22:00-0500 Systolic blood fznnayla758 mm[Hg]Kaylinn Dokken [address]11-10-2024 21:00-0500 Diastolic blood kxmqdeao16 mm[Hg]Kaylinn Dokken [address] [place], [place] 3732711-10-2024 21:00-0500Heart rate88 /minKaylinn Dokken [address]11-10-2024 21:00-3817UmD3% (BldA) [Mass fraction]95 %Kaylinn Dokken [address] [place], [place] 3732711-10-2024 21:00-0500 Systolic blood qvaxmpth188 mm[Hg]Oseas Arroyo [address] [place], [place] 3732711-10-2024 20:00-0500Heart rate91 /minOseas Arroyo [address] [place], [place] 3732711-10-2024 19:35-0500Body kvonstobxkt57.06 [degF]Oseas Arroyo [address] [place], [place] 3732711-10-2024 19:35-0500 Diastolic blood nqoiornl08 mm[Hg]Oseas Arroyo [address] [place], [place] 3732711-10-2024 19:35-0500Heart unnm835 /Kate Arroyo [address] [place], [place] 3732711-10-2024 19:35-0500 Systolic blood srqarssv948 mm[Hg]Oseas Arroyo [address] [place] [address] Encounters Encounter DateEncounter TypeCare ProviderFacilityStart: 02-15-2024 End: 96-13-5011Dwwlhnqbc department patient visitOseas Arroyo [address] [place] [address] Start: 04-15-2022 End: 89-74-3778qiwlyibkdwZQ DOUGLAS SCOTTHoward .Facility:F1Lsxoi: 04-13-2022 End: 54-47-6823mvlliaazkdTM LUISA BRAD .Facility:H1 Payers DatePayer CategoryPayerPolicy [id number] Social History DateTypeDetailFacilityTobaccoCurrent vaping or e-cigarette use Smokeless Tobacco Use:. Cigarettes, VapingSelect [facility] [place] Tobacco smoking statusNo Smoking Status EnteredSelect Medical [facility] [place] Sex Ass[facility]Mal[facility] Functional Status VeszPyzoaccvmnCmdyydSufpfkwz60-36-4207Ddpxmvytmr StatusN/AFCleveland Clinic [facility] Hospital Discharge instructions 02-16-2024 Note Date & XztjOasgVltnxzle57-36-4036 Hospital Discharge instructions Patient Education 02/15/2024 23:08:05 Paresthesia, Jtgd-wr-Ciez Paresthesia Paresthesia is a burning or prickling [...] hard liquor (44 mL). General instructions Take gtds-kot-rrorets and prescription medicines only as told by [...] provider. Document Revised: 12/03/2021 Document Reviewed: 12/03/2021 [employer] Patient Education 2023 TNC. 02/15/2024 23:08:05 Cervical Radiculopathy, Vfpz-ix-Zgbm Cervical Radiculopathy Cervical radiculopathy means that a nerve in the neck (a cervical nerve) is pinched or bruised. This can happen because of an injury to the cervical spine (vertebrae) in the neck, or as a normal partof getting older. This condition can cause pain or loss of feeling (numbness) that runs from your neck all the way down to your arm and fingers. Often, this condition gets better with rest. Treatmentmay be needed if the condition does not [...] and bathing. If you are allowed to takethe collar off for cleaning or bathing: ?Follow [...] any, tell your doctor. Managing pain Take lmad-ncp-nadogjr and prescription medicines only as told by [...] provider. Document Revised: 09/27/2021 Document Reviewed: 09/27/2021 [employer] Patient Education 2023 TNC. Follow Up Care 02/15/2024 19:33:12 With:Bill Carballo Address: [address] [address] [place] [address]- Business (1) When:02/18/2024 Comments:Take the steroids once daily and to you have completed the course. You can use the muscle relaxer every 8 hours as needed for muscle spasm. Please follow-up with your primary care doctor for further evaluation management. Please return to the ED for any new or worsening symptoms. With:Luisa Barclay Address: [address] [place] [phone]- Business (1) When:Within 3 Day(s) [facility] Clinical Note 02-15-2024 Note Date & GxwpZzqdXudgqved08-06-2997 NoteED Patient Education Note Neurology Paresthesia Paresthesia is [...] liquor (44 mL). General instructions ??? Take hpjj-mqa-dzvidsg and prescription medicines only as told by [...] provider. Document Revised: 12/03/2021 Document Reviewed: 12/03/2021 [employer] Patient Education ? 2023 TNC. Orthopedics Cervical Radiculopathy Cervical radiculopathy means that a nerve in the neck (a cervical nerve) is pinched or bruised. This can happen because of an injury to the cervical spine (vertebrae) in the neck, or as a normal partof getting older. This condition can cause pain or loss of feeling (numbness) that runs from your neck all the way down to your arm and fingers. Often, this condition gets better with rest. Treatmentmay be needed if the condition does not [...] not help. The type of surgery that isused will depend on the cause of your condition. Follow these instructions at home: If you have a soft neck collar: ??? Wear it as told by your doctor. Take it off only as told by your doctor. ??? Ask your doctor if (more content not included)...[facility] Evaluation + Plan note 02-15-2024 Note Date & QakmUtvzHsjrdoyz47-96-8230 Evaluation + Plan noteExtracted from: Title:ED NoteAuthor:Oseas Arroyo DO ADate:02/15/24 Cervical radiculopathy (M54. 12: Radiculopathy, cervical region) Paresthesia (R20.2: Paresthesia of skin) Orders: methocarbamol, 500 mg = 1 tab(s), Oral, TID, X 3 day(s), # 9 tab(s), Refills(s) 0, Pharmacy: [id number], 180, cm, 02/15/24 19:43:00 EST, Height/Length Dosing, 120, kg, 02/15/24 19:43:00 EST, Weight Dosing methylPREDNISolone, 125 mg = 2 mL, Injection, IV Push, Once, Stop date 02/15/24 19:59:00 EST, STAT,Start date 02/15/24 19:59:00 EST, 02/15/24 19:59:00 EST predniSONE, 50 mg = 1 tab(s), Oral, Daily, X 5 day(s), # 5 tab(s), Refills(s) 0, Pharmacy: [facility] #[id number], 180, cm, 02/15/24 19:43:00 EST, Height/Length Dosing, 120, kg, 02/15/24 19:43:00EST, Weight Dosing Basic Metabolic Panel CBC w/ Auto Diff CT Head or Brain w/o Contrast CT Spine Cervical w/o Contrast CT Spine Thoracic w/o Contrast ECG 12 Lead Adult ED Cardiac Monitoring eGFR Oxygen Saturation Oxygen Therapy PT & PTT Saline Lock Insert Troponin 0 Hr. XR Chest Single View [facility] Hospital course Narrative Note Date & TypeNoteFacilityHospital course Narrative No data available for this section [facility] Progress note Note Date & TypeNoteFacilityProgress note No data available for this section [facility] Summary Purpose Family History No Family History [...] and content) DATE CREATED AUTHOR 07/30/2022 [facility] DATE CREATED AUTHOR AUTHOR'S ORGANIZ ATION 02/16/2024 [facility] DATE CREATED AUTHOR AUTHOR'S ORGANIZ ATION 02/20/2024 [facility] Patient Care team informatio n (unrecognized section and content) Personnel Name: Luisa Barclay MD Address: Address: [address] [place] [address] FOR RECORDS PERTAINING TO PATIENTS WHO ARE [...] BE BASED ON THE PRIMARY CLINICAL RECORDS. [facility] [employer] [facility]. provides no warranty or guarantee of the accuracy or completeness of information in this document.
== END 2025-02-25 11:16 | disposition home or self-care (01) ==
LOC: RAD 11:15
PROVIDERS: PCP Family Medicine; Visit Provider Family Medicine
DX: R29.898 Other symptoms and signs involving the musculoskeletal system (principal)
CPT/HCPCS: 70030; 70551; 72141